=== PATIENT | female | born 1945 | race Caucasian/White ===

== ENCOUNTER 2018-03-02 14:44 | Emergency (ER) | payer MEDICARE, OTHER ==
--- NOTE | 2018-03-02 16:03 | RAD REPORT ---
EXAM DESCRIPTION: CT - Head Brain Wo Cont - 03/02/2018 3:51 pm CLINICAL HISTORY: Headache left-sided drooping COMPARISON: None. TECHNIQUE: Axial 5 mm thick images of the head were obtained without IV contrast. All CT scans are performed using dose optimization technique as appropriate and may include automated exposure control or mA/KV adjustment according to patient size. FINDINGS: No intracranial hemorrhage, mass, edema or shift of mid-line structures. No acute infarcti on changes seen. No cortical edema or sulcal effacement. Atrophy and chronic ischemic changes are min imal. Ventricles are normal. Mastoid air cells and visualized portions of the paranasal sinuses are clear. No acute bony findings. IMPRESSION: Negative non-contrast CT head examination for acute finding. Atrophy and chronic ischemic changes minimal. Concerns for acute ischemia can be addressed with MR im aging.
[2018-03-02] MEDS ORDERED: NA CHLORIDE 0.9% 1,000 ML ONE (16:35)
[2018-03-02 16:48] LABS: Absolute Lymphocytes (CBC) 1.9 K/uL (0.7-4.9); Absolute Monocytes 0.8 K/uL (0.1-1.3); Absolute Neutrophil 5.7 K/uL (1.8-8.0); Basophils % 0.7 % (0-1.3); Eosinophils % 3.6 % (0-4.4); Hematocrit 38.1 % (36.0-45.0); MCV 80.9 fL (80-100); MPV 7.1 fL (7.6-11.3); Monocytes % 8.8 % (3.3-12.3); RBC Red Blood Cell Count 4.71 M/uL (3.86-4.86)
[2018-03-02 17:04] LABS: Potassium 4.3 mmol/L (3.5-5.1)
--- NOTE | 2018-03-02 17:16 | ER ---
Nurse's Notes [facility] Name: Federica Dang Age: 72 yrs Sex: Female : 1945 Arrival Date: 03/02/2018 Time: 14:47 Bed 15 Private MD: Diagnosis: Yee's palsy Presentation: 03/02 14:52 Presenting complaint: Patient states: watering to L eye that began 2 days ago with ss headache. Patient reports that she woke up this morning and noticed that her eye is red and she now has drooping to the L side of her face. Transition of care: patient was not received from another setting of care. Onset of symptoms was February 28, 2018. Risk Assessment: Do you want to hurt yourself or someone else? Patient reports no desire to harm self or others. Initial Sepsis Screen: Does the patient meet any 2 criteria? No. Patient's initial sepsis screen is negative. Does the patient have a suspected source of infection? No. Patient's initial sepsis screen is negative. Care prior to arrival: None. 14:52 Method Of Arrival: Ambulatory ss 14:52 Acuity: JAMESON 3 ss Triage Assessment: 15:00 Headache History: Denies prior headaches. rb1 15:00 Pain: Also complains of photophobia. rb1 Historical: - Allergies: 14:54 No Known Allergies; ss - Home Meds: 15:00 Unable to obtain [Active]; rb1 - Immunization history:: Adult Immunizations up to date. - Social history:: Smoking status: Patient/guardian denies using tobacco. - Ebola Screening: : Patient denies exposure to infectious person Patient denies travel to an Ebola-affected area in the 21 days before illness onset. - Family history:: not pertinent. - Hospitalizations: : No recent hospitalization is reported. Screenin:00 Abuse screen: Denies threats or abuse. Nutritional screening: No deficits noted. rb1 Tuberculosis screening: No symptoms or risk factors identified. Fall Risk None identified. Assessment: 15:00 General: Appears in no apparent distress. comfortable, Behavior is calm, cooperative, rb1 Reports fever for. Pain: Complains of pain in forehead Pain currently is 4 out of 10 on a pain scale. Pain began x 2 days. Neuro: Level of Consciousness is awake, alert, obeys commands, Oriented to person, place, time, situation, Wet End Supervisor are equal bilaterally Moves all extremities. Gait is steady, Speech is slurred, Facial droop on left, Pupils are PERRLA. 15:00 Cardiovascular: Capillary refill < 3 seconds is brisk in bilateral fingers. rb1 Respiratory: Airway is patent Respiratory effort is even, unlabored, Respiratory pattern is regular, symmetrical. GI: No signs and/or symptoms were reported involving the gastrointestinal system. : No signs and/or symptoms were reported regarding the genitourinary system. EENT: Eyes are tearing on outer aspect of conjuctiva of left eye and inner aspect of conjunctiva of left eye Sclera/Cornea are reddened in outer aspect of conjuctiva of left eye and inner aspect of conjunctiva of left eye left eye is burning and itching. Derm: Skin is pink, warm \T\ dry. Musculoskeletal: Range of motion: intact in all extremities. 16:00 Reassessment: Patient appears in no apparent distress at this time. Patient and/or rb1 family updated on plan of care and expected duration. Pain level reassessed. Patient is alert, oriented x 3, equal unlabored respirations, skin warm/dry/pink. 17:00 Reassessment: Patient appears in no apparent distress at this time. No changes from rb1 previously documented assessment. Son at bedside. 17:45 Reassessment: Patient appears in no apparent distress at this time. Patient and/or rb1 family updated on plan of care and expected duration. Pain level reassessed. Patient is alert, oriented x 3, equal unlabored respirations, skin warm/dry/pink. Dr. Cox has not been able to speak with the pt. and family to go over the results so discharge is pending. 18:30 Reassessment: Patient appears in no apparent distress at this time. No changes from rb1 previously documented assessment. Vital Signs: 14:54 BP 125 / 81; Pulse 107; Resp 16; Temp 97.4(TE); Pulse Ox 96% ; Pain 4/10; ss 15:55 BP 139 / 70; Pulse 85; Resp 28; Pulse Ox 97% ; rb1 16:55 BP 121 / 70; Pulse 86; Resp 17; Pulse Ox 97% on R/A; dh3 17:20 BP 152 / 71; Pulse 78; Resp 15; Pulse Ox 100% on R/A; dh3 18:20 BP 147 / 73; Pulse 82; Resp 17; Pulse Ox 99% on R/A; rb1 Cornelio Coma Score: 17:14 Eye Response: spontaneous(4). Verbal Response: oriented(5). Motor Response: obeys rn commands(6). Total: 15. ED Course: 14:47 Patient arrived in ED. as 14:53 Triage completed. ss 14:54 Arm band placed on right wrist. ss 15:00 Patient has correct armband on for positive identification. Bed in low position. Call rb1 light in reach. Side rails up X 1. gambling monitor on. Pulse ox on. NIBP on. Warm blanket given. 15:08 Jerald Cox MD is Attending Physician. rn 15:36 Sasha Watkins, RN is Primary Nurse. rb1 15:50 CT completed. Patient moved to CT via stretcher. Patient moved back from CT. bq 15:51 CT Head Brain wo Cont In Process Unspecified. EDMS 16:29 Initial lab(s) drawn, by pr, sent to lab. Inserted saline lock: 22 gauge in left 3 antecubital area, using aseptic technique. Blood collected. 18:35 No provider procedures requiring assistance completed. IV discontinued, intact, rb1 bleeding controlled, No redness/swelling at site. Pressure dressing applied, IV was discontinued by GILBERTO Perla. Administered Medications: 16:34 Drug: NS 0.9% 1000 ml Route: IV; Rate: 1000 ml; Site: left antecubital; rb1 18:40 Drug: Acyclovir 400 mg Route: PO; rb1 18:40 Follow up: Response: Medication administered at discharge. rb1 18:40 Drug: predniSONE 60 mg Route: PO; rb1 18:40 Follow up: Response: Medication administered at discharge. rb1 Outcome: 17:16 Discharge ordered by . rn 18:40 Patient left the ED. rb1 18:40 Discharged to home ambulatory, with family. 18:40 Condition: stable 18:40 Discharge instructions given to patient, Instructed on discharge instructions, follow up and referral plans. medication usage, Demonstrated understanding of instructions, follow-up care, medications, Prescriptions given X 2. Signatures: Dispatcher [employer] EDIN Sonja Archer Glenys Zuñiga as Jerald Cox MD MD rn Smirch, Shelby, RN RN Sasha Watkins, DARREN RN [facility] [place] [id number] Corrections: (The following items were deleted from the chart) 19:40 18:48 Patient left the ED. rb1 rb1 19:42 18:35 Patient left the ED. rb1 rb1 19:42 18:35 Discharged to home ambulatory, with family, rb1 rb1 :42 18:35 Condition: stable rb1 rb1 19:42 18:35 Discharge instructions given to patient, Instructed on discharge instructions, rb1 follow up and referral plans. medication usage, Demonstrated understanding of instructions, follow-up care, medications, Prescriptions given X 2, rb1
--- NOTE | 2018-03-02 17:16 | EDPHYS ---
Physician Documentation [facility] Name: Federica Dang Age: 72 yrs Sex: Female : 1945 Arrival Date: 03/02/2018 Time: 14:47 Bed 15 Private MD: ED Physician Jerald Cox HPI: 03/02 16:01 This 72 yrs old Female presents to ER via Ambulatory with complaints of rn Headache, Facial Droop. 16:01 The patient complains of pain to the forehead. The patient describes the headache as rn aching. Onset: The symptoms/episode began/occurred 2 day(s) ago. Severity of symptoms: At its worst the pain was mild, in the emergency department the pain has improved. The patient has experienced a previous episode. 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 No other focal neurological complaint. . Historical: - Allergies: 14:54 No Known Allergies; ss - Home Meds: 15:00 Unable to obtain [Active]; rb1 - Immunization history:: Adult Immunizations up to date. - Social history:: Smoking status: Patient/guardian denies using tobacco. - Ebola Screening: : Patient denies exposure to infectious person Patient denies travel to an Ebola-affected area in the 21 days before illness onset. - Family history:: not pertinent. - Hospitalizations: : No recent hospitalization is reported. ROS: 16:01 Constitutional: Negative for fever, chills, and weight loss, Eyes: + red eye with clear rn drainage Neck: Negative for injury, pain, and swelling, Cardiovascular: Negative for chest pain, palpitations, and edema, Respiratory: Negative for shortness of breath, cough, wheezing, and pleuritic chest pain, Abdomen/GI: Negative for abdominal pain, nausea, vomiting, diarrhea, and constipation, MS/Extremity: Negative for injury and deformity, Skin: Negative for injury, rash, and discoloration, Neuro: Negative for weakness, numbness, tingling, and seizure. Exam: 16:01 Constitutional: This is a well developed, well nourished patient who is awake, alert, rn and in no acute distress. Head/Face: Normocephalic, atraumatic. Eyes: Left eye with mild scleral injection, pupils equal, reactive, clear drainage, no corneal defect Neck: Trachea midline, no thyromegaly or masses palpated, and no cervical lymphadenopathy. Supple, full range of motion without nuchal rigidity, or vertebral point tenderness. No Meningismus. Cardiovascular: Regular rate and rhythm with a normal S1 and S2. No gallops, murmurs, or rubs. Normal PMI, no JVD. No pulse deficits. Respiratory: Lungs have equal breath sounds bilaterally, clear to auscultation and percussion. No rales, rhonchi or wheezes noted. No increased work of breathing, no retractions or nasal flaring. Abdomen/GI: Soft, non-tender, with normal bowel sounds. No distension or tympany. No guarding or rebound. No evidence of tenderness throughout. Skin: Warm, dry with normal turgor. Normal color with no rashes, no lesions, and no evidence of cellulitis. MS/ Extremity: Pulses equal, no cyanosis. Neurovascular intact. Full, normal range of motion. Equal circumference. Neuro: Awake and alert, GCS 15, oriented to person, place, time, and situation. + left sided facial droop that involves upper and lower face, unable to completely shut left eye. Motor strength 5/5 in all extremities. Sensory grossly intact. Cerebellar exam normal. Vital Signs: 14:54 BP 125 / 81; Pulse 107; Resp 16; Temp 97.4(TE); Pulse Ox 96% ; Pain 4/10; ss 15:55 BP 139 / 70; Pulse 85; Resp 28; Pulse Ox 97% ; rb1 16:55 BP 121 / 70; Pulse 86; Resp 17; Pulse Ox 97% on R/A; dh3 17:20 BP 152 / 71; Pulse 78; Resp 15; Pulse Ox 100% on R/A; dh3 18:20 BP 147 / 73; Pulse 82; Resp 17; Pulse Ox 99% on R/A; rb1 Cornelio Coma Score: 17:14 Eye Response: spontaneous(4). Verbal Response: oriented(5). Motor Response: obeys rn commands(6). Total: 15. MDM: 15:08 Patient medically screened. rn 17:14 Differential diagnosis: hypertensive headache, intracerebral hemorrhage, migraine, rn tension headache, vasomotor headache, bells palsy. Data reviewed: vital signs, nurses notes, lab test result(s), radiologic studies, CT scan, and as a result, I will discharge patient. Counseling: I had a detailed discussion with the patient and/or guardian regarding: the historical points, exam findings, and any diagnostic results supporting the discharge/admit diagnosis, lab results, radiology results, the need for outpatient follow up, to return to the emergency department if symptoms worsen or persist or if there are any questions or concerns that arise at home. Special discussion: I discussed with the patient/guardian in detail that at this point there is no indication for admission to the hospital. It is understood, however, that if the symptoms persist or worsen the patient needs to return immediately for re-evaluation. Based on the history and exam findings, there is no indication for further emergent testing or inpatient evaluation. I discussed with the patient/guardian the need to see the neurologist for further evaluation of the symptoms. 17:14 ED course: Symptoms and presentation consistent with bells palsy and likely early rn irritation due to dry eye.. 03/02 15:52 Order name: CBC with Diff; Complete Time: 17:14 rn 03/02 15:52 Order name: Basic Metabolic Panel; Complete Time: 17:14 rn 03/02 15:00 Order name: CT Head Brain wo Cont; Complete Time: 16:04 la1 03/02 15:52 Order name: IV Start; Complete Time: 16:30 rn Administered Medications: 16:34 Drug: NS 0.9% 1000 ml Route: IV; Rate: 1000 ml; Site: left antecubital; rb1 18:40 Drug: Acyclovir 400 mg Route: PO; rb1 18:40 Follow up: Response: Medication administered at discharge. rb1 18:40 Drug: predniSONE 60 mg Route: PO; rb1 18:40 Follow up: Response: Medication administered at discharge. rb1 Disposition: 03/02/18 17:16 Discharged to Home. Impression: Yee's palsy. - Condition is Stable. - Discharge Instructions: Yee Palsy, Adult. - Prescriptions for Acyclovir 400 mg Oral Tablet - take 1 tablet by ORAL route every 8 hours; 30 tablet. Medrol (Garcia) 4 mg Oral Tablets, Dose Pack - take 1 tablet by ORAL route as directed - follow package instructions; 1 packet. - Medication Reconciliation Form, Thank You Letter, Antibiotic Education, Prescription Opioid Use form. - Follow up: Private Physician; When: As needed; Reason: Recheck today's complaints, Re-evaluation by your physician. - Problem is new. - Symptoms have improved. Signatures: Dispatcher [employer] EDJerald French MD MD rn Smirch, Shelby, RN RN Sasha Flynn RN RN rb1 Corrections: (The following items were deleted from the chart) 18:48 17:16 03/02/2018 17:16 Discharged to Home. Impression: Yee's palsy. Condition is rb1 Stable. Forms are Medication Reconciliation Form, Thank You Letter, Antibiotic Education, Prescription Opioid Use. Follow up: Private Physician; When: As needed; Reason: Recheck today's complaints, Re-evaluation by your physician. Problem is new. Symptoms have improved. rn
[2018-03-02] MEDS ORDERED: ACYCLOVIR 400 MG TABLET ONE (18:43)
[2018-03-02] MEDS ORDERED: predniSONE 20 MG TAB ONE (18:44)
== END 2018-03-02 18:48 | disposition home or self-care (01) ==
LOC: ER 14:44
DX: G51.0 Bell's palsy (principal); R51 Headache; R29.810 Facial weakness
CPT/HCPCS: 36415; 70450; 80048; 85025; J7030; 99285; J7512

== ENCOUNTER 2019-02-23 18:49 | Emergency (ER) | payer MEDICARE ==
--- NOTE | 2019-02-23 20:37 | RAD REPORT ---
EXAM DESCRIPTION: CT - CTHCSPWOC - 02/23/2019 8:28 pm CLINICAL HISTORY: Hypertension, headache, neck pain, uterine cancer COMPARISON: CT head February 2018 TECHNIQUE: Axial 5 mm thick images of the head were obtained. Axial 2 mm thick images of the cervic al spine were obtained with sagittal and coronal reconstruction images generated and reviewed. All CT scans are performed using dose optimization technique as appropriate and may include automated exposure control or mA/KV adjustment according to patient size. FINDINGS: No intracranial hemorrhage, mass, edema or acute intracranial finding. No suspicion for acute infarct ion. No extra-axial fluid collections. Mastoid air cells and paranasal sinuses are clear. No globe or orbit abnormality seen. Atrophy and chronic ischemic change pattern is mild matches comparison. Vent ricles are in proportion. Cervical body height and alignment are normal. C5-6 and C6-7 disc space narrowing. No fracture or acu te bony abnormality. Central canal detail is inherently limited. No significant foraminal encroachmen t changes. No paraspinal mass or hematoma. IMPRESSION: Atrophy and chronic ischemic changes match comparison. No acute intracranial finding. Cervical spine degenerative change as detailed. No acute finding.
[2019-02-23] MEDS ORDERED: MECLIZINE HCL 12.5 MG TAB ONE (20:50)
[2019-02-23] MEDS ORDERED: HYDROCODONE/APAP 5/325 MG TAB ONE (20:51)
[2019-02-23 20:59] LABS: Basophils % 0.4 % (0-1.3); Hematocrit 34.5 % (36.0-45.0); Lymphocytes % 26.6 % (15.3-44.8); MPV 8.1 fL (7.6-11.3); RBC Red Blood Cell Count 4.15 M/uL (3.86-4.86)
[2019-02-23 21:14] LABS: Potassium 4.4 mmol/L (3.5-5.1)
--- NOTE | 2019-02-23 21:56 | ER ---
Nurse's Notes [facility] Name: Federica Dang Age: 73 yrs Sex: Female : 1945 Arrival Date: 02/23/2019 Time: 18:54 Bed 23 Private MD: Torey Carranza E Diagnosis: Acute headache. Dizziness Presentation: 02/23 18:57 Presenting complaint: Patient states: HTN since last week, frontal headache, dizziness sv x 1 week. Transition of care: patient was not received from another setting of care. Onset of symptoms was February 16, 2019. Care prior to arrival: None. 18:57 Method Of Arrival: Ambulatory sv 19:01 Risk Assessment: Do you want to hurt yourself or someone else? Patient reports no sv desire to harm self or others. Initial Sepsis Screen: Does the patient meet any 2 criteria? No. Patient's initial sepsis screen is negative. Does the patient have a suspected source of infection? No. Patient's initial sepsis screen is negative. 19:01 Acuity: JAMESON 3 sv Triage Assessment: 18:59 General: Appears in no apparent distress. comfortable, Behavior is calm, cooperative, sv appropriate for age. Pain: Complains of pain in forehead. Neuro: Level of Consciousness is awake, alert, obeys commands, Oriented to person, place, time, situation, Moves all extremities. Full function Gait is steady, Speech is normal, Facial symmetry appears normal, Reports dizziness, headache frontal area. Respiratory: Respiratory effort is even, unlabored, Respiratory pattern is regular, symmetrical. Historical: - Allergies: 18:58 PENICILLINS; sv - Home Meds: 19:01 Lisinopril Oral [Active]; sv - PMHx: 18:58 Hypertension; uterine cancer; sv - Immunization history:: Adult Immunizations up to date. - Social history:: Smoking status: Patient/guardian denies using tobacco. - Ebola Screening: : Patient negative for fever greater than or equal to 101.5 degrees Fahrenheit, and additional compatible Ebola Virus Disease symptoms Patient denies exposure to infectious person. Screenin:20 Abuse screen: Denies threats or abuse. Denies injuries from another. Nutritional wh screening: No deficits noted. Tuberculosis screening: No symptoms or risk factors identified. Fall Risk None identified. Assessment: 19:25 General: Appears in no apparent distress. Behavior is calm, cooperative, appropriate wh for age. Pain: Complains of pain in forehead Pain does not radiate. Pain currently is 10 out of 10 on a pain scale. Quality of pain is described as aching, Pain began 2-3 days ago. Neuro: Level of Consciousness is awake, alert, obeys commands, Oriented to person, place, time, situation, Appropriate for age Plastic Process Technician are equal bilaterally Moves all extremities. Full function Reports dizziness, since Saturday headache frontal area. Cardiovascular: Heart tones S1 S2. Respiratory: Airway is patent Respiratory effort is even, unlabored, Respiratory pattern is regular, symmetrical. GI: Abdomen is flat, non-distended. : Reports Urine bag. EENT: No signs and/or symptoms were reported regarding the EENT system. Derm: Skin is intact, is healthy with good turgor, Skin is pink, warm \T\ dry. normal. Musculoskeletal: Range of motion: intact in all extremities. 20:30 Reassessment: Patient appears in no apparent distress at this time. No changes from previously documented assessment. Patient and/or family updated on plan of care and expected duration. Pain level reassessed. Patient is alert, oriented x 3, equal unlabored respirations, skin warm/dry/pink. 21:44 Reassessment: Patient appears in no apparent distress at this time. No changes from previously documented assessment. Patient and/or family updated on plan of care and expected duration. Pain level reassessed. Patient is alert, oriented x 3, equal unlabored respirations, skin warm/dry/pink. Patient states feeling better. Patient states symptoms have improved. 22:35 Reassessment: Patient appears in no apparent distress at this time. No changes from previously documented assessment. Patient and/or family updated on plan of care and expected duration. Pain level reassessed. Patient is alert, oriented x 3, equal unlabored respirations, skin warm/dry/pink. Patient states feeling better. Patient states symptoms have improved. Vital Signs: 18:58 BP 148 / 78; Pulse 78; Resp 18; Temp 98; Pulse Ox 98% ; Weight 68.04 kg; Height 5 ft. 3 sv in. (160.02 cm); 19:15 BP 176 / 70; Pulse 75; Resp 18; Temp 97.5; Pulse Ox 100% on R/A; wh 20:30 BP 149 / 71; Pulse 68; Resp 18; Pulse Ox 98% on R/A; wh 22:00 BP 129 / 56; Pulse 58; Resp 18; Pulse Ox 98% on R/A; 18:58 Body Mass Index 26.57 (68.04 kg, 160.02 cm) ED Course: 18:54 Patient arrived in ED. as 18:55 Torey Carranza MD is Private Physician. as 18:58 Arm band placed on. 19:01 Triage completed. 19:03 Flako Bridges is Primary Nurse. 19:21 Patient has correct armband on for positive identification. Bed in low position. Call light in reach. Side rails up X 1. Pulse ox on. NIBP on. 19:53 Jeovanny Cevallos MD is Attending Physician. pkl 20:28 CT Head C Spine In Process Unspecified. EDMO 20:28 CT completed. Patient tolerated procedure well. Patient moved to CT. Patient moved back mn from CT. 20:54 Initial lab(s) drawn, by nd, sent to lab. jp3 21:55 Torey Carranza MD is Referral Physician. pkl 22:35 No provider procedures requiring assistance completed. Patient did not have IV access during this emergency room visit. Administered Medications: 20:45 Drug: Alder 5 mg-325 mg 1 tabs Route: PO; jv1 22:36 Follow up: Response: No adverse reaction; Pain is decreased; RASS: Alert and Calm (0) 20:45 Drug: Antivert 25 mg Route: PO; jv1 22:36 Follow up: Response: No adverse reaction Outcome: 21:55 Discharge ordered by . pkl 22:35 Discharged to home ambulatory, with family. 22:35 Condition: good 22:35 Discharge instructions given to patient, family, Instructed on discharge instructions, follow up and referral plans. no drinking with medication, no driving heavy equipment, medication usage, POC Demonstrated understanding of instructions, follow-up care, medications, POC Prescriptions given X 2. 22:37 Patient left the ED. Signatures: Dispatcher [employer] Greer Stein RN RN Jeovanny Cevallos MD MD pkGlenys Granger Nathan nj Habalo, Winsy Hany Rivera jp3 Britni Nix RN RN jv1 Corrections: (The following items were deleted from the chart) 19:00 18:58 Pulse 78bpm; Resp 18bpm; Pulse Ox 98%; Temp 98F; 68.04 kg; Height 5 ft. 3 in.; sv BMI: 26.5; sv
--- NOTE | 2019-02-23 21:57 | EDPHYS ---
Physician Documentation [facility] Name: Federica Dang Age: 73 yrs Sex: Female : 1945 Arrival Date: 02/23/2019 Time: 18:54 Bed 23 Private MD: Torey Carranza E ED Physician Jeovanny Cevallos HPI: 02/23 20:06 This 73 yrs old Female presents to ER via Ambulatory with complaints of High pkl Blood Pressure, Dizziness. 20:06 The patient presents with dizziness, sense of spinning. Onset: The symptoms/episode pkl began/occurred 1 week(s) ago. Associated signs and symptoms: Pertinent positives: headache, hypertension. Historical: - Allergies: 18:58 PENICILLINS; sv - Home Meds: 19:01 Lisinopril Oral [Active]; sv - PMHx: 18:58 Hypertension; uterine cancer; sv - Immunization history:: Adult Immunizations up to date. - Social history:: Smoking status: Patient/guardian denies using tobacco. - Ebola Screening: : Patient negative for fever greater than or equal to 101.5 degrees Fahrenheit, and additional compatible Ebola Virus Disease symptoms Patient denies exposure to infectious person. ROS: 20:06 Eyes: Negative for injury, pain, redness, and discharge, ENT: Negative for injury, pkl pain, and discharge. 20:06 Neck: Positive for pain with movement. 20:06 Cardiovascular: Negative for chest pain. 20:06 Respiratory: Negative for cough, shortness of breath. 20:06 Abdomen/GI: Negative for abdominal pain, nausea, vomiting, and diarrhea. 20:06 Back: Negative for acute changes. 20:06 : Negative for urinary symptoms. 20:06 MS/extremity: Negative for acute changes. 20:06 Skin: Negative for rash. 20:06 Neuro: Negative for altered mental status. Exam: 20:06 Head/Face: Normocephalic, atraumatic. Eyes: Pupils equal round and reactive to light, pkl extra-ocular motions intact. Lids and lashes normal. Conjunctiva and sclera are non-icteric and not injected. Cornea within normal limits. Periorbital areas with no swelling, redness, or edema. ENT: Nares patent. No nasal discharge, no septal abnormalities noted. Tympanic membranes are normal and external auditory canals are clear. Oropharynx with no redness, swelling, or masses, exudates, or evidence of obstruction, uvula midline. Mucous membranes moist. 20:06 Neck: ROM/movement: pain, that is mild, with any movement. 20:06 Chest/axilla: Exam negative for acute changes. 20:06 Cardiovascular: Rate: normal, Rhythm: regular. 20:06 Respiratory: the patient does not display signs of respiratory distress, Respirations: normal, Breath sounds: are clear throughout. 20:06 Abdomen/GI: Bowel sounds: normal, Palpation: abdomen is soft and non-tender, in all quadrants. 20:06 Back: Exam negative for acute changes. 20:06 : Exam negative for acute changes. 20:06 Musculoskeletal/extremity: Exam is negative for acute changes. 20:06 Skin: Exam negative for rash. 20:06 Neuro: Orientation: is normal, Mentation: is normal, Memory: is normal, Cranial nerves: grossly normal, Cerebellar function: normal finger to nose testing, Motor: is normal. Vital Signs: 18:58 BP 148 / 78; Pulse 78; Resp 18; Temp 98; Pulse Ox 98% ; Weight 68.04 kg; Height 5 ft. 3 sv in. (160.02 cm); 19:15 BP 176 / 70; Pulse 75; Resp 18; Temp 97.5; Pulse Ox 100% on R/A; wh 20:30 BP 149 / 71; Pulse 68; Resp 18; Pulse Ox 98% on R/A; wh 22:00 BP 129 / 56; Pulse 58; Resp 18; Pulse Ox 98% on R/A; wh 18:58 Body Mass Index 26.57 (68.04 kg, 160.02 cm) sv MDM: 19:53 Patient medically screened. pkl 21:49 Data reviewed: vital signs, nurses notes, lab test result(s), radiologic studies, CT pkl scan. 21:53 ED course: Discussed lab. and CT Scan results with patient. Advised to follow up with pkl PCP in 2 to 3 days. Patient understood instructions. 02/23 20:03 Order name: CBC with Diff; Complete Time: 21:48 pkl 02/23 20:03 Order name: Chem 7; Complete Time: 21:48 pkl 02/23 20:05 Order name: CT Head C Spine; Complete Time: 21:48 pkl Administered Medications: 20:45 Drug: [place] 5 mg-325 mg 1 tabs Route: PO; jv1 22:36 Follow up: Response: No adverse reaction; Pain is decreased; RASS: Alert and Calm (0) 20:45 Drug: Antivert 25 mg Route: PO; jv1 22:36 Follow up: Response: No adverse reaction Disposition: 02/23/19 21:55 Discharged to Home. Impression: Acute headache. Dizziness. - Condition is Stable. - Prescriptions for Antivert 25 mg Oral Tablet - take 1 tablet by ORAL route every 8 hours As needed; 15 tablet. Ultram 50 mg Oral Tablet - take 1 tablet by ORAL route every 8 hours As needed; 15 tablet. - Medication Reconciliation Form, Thank You Letter, Antibiotic Education, Prescription Opioid Use form. - Follow up: Torey Carranza MD; When: 2 - 3 days; Reason: Re-evaluation by your physician. - Problem is new. - Symptoms have improved. Signatures: Dispatcher [employer] EDGreer Aldrich RN DARREN Jeovanny Cevallos MD MD pkl Flako Bridges Britni Nix RN RN jv1 Corrections: (The following items were deleted from the chart) 22:37 21:55 02/23/2019 21:55 Discharged to Home. Impression: Acute headache. Dizziness. Condition is Stable. Forms are Medication Reconciliation Form, Thank You Letter, Antibiotic Education, Prescription Opioid Use. Follow up: Torey Carranza; When: 2 - 3 days; Reason: Re-evaluation by your physician. Problem is new. Symptoms have improved. pkl
== END 2019-02-23 22:37 | disposition home or self-care (01) ==
LOC: ER 18:49
DX: R51 Headache (principal); I10 Essential (primary) hypertension; Z88.0 Allergy status to penicillin; Z85.42 Personal history of malignant neoplasm of other parts of uterus
CPT/HCPCS: 36415; 70450; 72125; 80048; 85025; 99284

== ENCOUNTER 2019-07-24 13:54 | Emergency (ER) | payer MEDICARE ==
--- NOTE | 2019-07-24 17:05 | RAD REPORT ---
EXAM DESCRIPTION: Candice Au (2 Views)07/24/2019 4:51 pm CLINICAL HISTORY: Cough COMPARISON: 2012 FINDINGS: The lungs appear clear of acute infiltrate. The heart is normal size IMPRESSION: No acute abnormalities displayed
--- NOTE | 2019-07-24 17:37 | EDPHYS ---
Physician Documentation [facility] Name: Federica Dang Age: 73 yrs Sex: Female : 1945 Arrival Date: 07/24/2019 Time: 13:57 Bed 18 Private MD: Torey Carranza E ED Physician Jerald Cox HPI: 07/24 16:33 This 73 yrs old Female presents to ER via Ambulatory with complaints of Low jmm BP. 16:33 This 73 yrs old Female presents to ER via Ambulatory with complaints of jmm cough, fever. 16:33 Onset: The symptoms/episode began/occurred gradually, 2 week(s) ago. Modifying factors: jmm The symptoms are alleviated by nothing. the symptoms are aggravated by nothing. Associated signs and symptoms: Pertinent positives: fever. This is a 73 year old female with a history of htn that presents to the ED with complaints of cough, congestion, sinus pain and fever beginning approx 2 weeks ago. Patient denies sore throat. Patient received flu and pneumonia vaccine. . Historical: - Allergies: 14:09 PENICILLINS; dm5 ROS: 16:33 ENT: Negative for injury, pain, and discharge. jmm 16:33 Constitutional: Positive for body aches, chills, fever. 16:33 Respiratory: Positive for cough. 16:33 Neuro: Positive for headache. 16:33 All other systems are negative. Exam: 16:33 Constitutional: This is a well developed, well nourished patient who is awake, alert, jmm and in no acute distress. 16:33 Eyes: EOMI, no conjunctival erythema appreciated ENT: Moist Mucus Membranes Neck: Trachea midline, Supple Chest/axilla: Normal chest wall appearance and motion. Cardiovascular: Regular rate and rhythm. No edema appreciated 16:33 Abdomen/GI: Non distended, soft Back: Normal ROM Skin: General appearance color normal MS/ Extremity: Moves all extremities, no obvious deformities appreciated, no edema noted to the lower extremities Neuro: Awake and alert, normal gait Psych: Behavior is normal, Mood is normal, Patient is cooperative and pleasant 16:33 Head/face: Sinus tenderness, that is moderate, is located over the right frontal sinus, left frontal sinus, right ethmoid sinus and left ethmoid sinus. 16:33 Respiratory: the patient does not display signs of respiratory distress, Respirations: normal, Breath sounds: wheezing: that is mild, is heard in the right upper lobe. Vital Signs: 14:09 BP 122 / 75; Pulse 99; Resp 18; Temp 98.4; Pulse Ox 98% on R/A; Weight 69.4 kg (M); dm5 Height 5 ft. 3 in. (160.02 cm); 17:23 BP 141 / 55; Pulse 81; Resp 17; Pulse Ox 97% on R/A; tw2 18:01 BP 115 / 59; Pulse 84; Resp 17; Pulse Ox 100% on R/A; tw2 14:09 Body Mass Index 27.10 (69.40 kg, 160.02 cm) dm5 MDM: 16:29 Patient medically screened. [facility] 16:35 Data reviewed: vital signs, nurses notes. [facility] 17:36 Data reviewed: lab test result(s), radiologic studies, plain films. Counseling: I had a [facility] detailed discussion with the patient and/or guardian regarding: the historical points, exam findings, and any diagnostic results supporting the discharge/admit diagnosis, lab results, radiology results, the need for outpatient follow up, to return to the emergency department if symptoms worsen or persist or if there are any questions or concerns that arise at home. ED course: Patient is alert and non toxic in appearance in the ED. No signs of resp distress. Patient advised to follow up with pcp and otherwise given strict return precautions. Patient understood and agrees with the plan of care. . 07/24 16:33 Order name: Flu; Complete Time: 17:21 [facility] 07/24 16:33 Order name: Strep; Complete Time: 17:21 [facility] 07/24 16:33 Order name: Chest Pa And Lat (2 Views) XRAY; Complete Time: 17:33 [facility] 07/24 17:20 Order name: Throat Culture EDMS Administered Medications: No medications were administered Disposition: 18:03 Co-signature as Attending Physician, Jerald Cox MD. rn Disposition: 07/24/19 17:37 Discharged to Home. Impression: Acute ethmoidal sinusitis, Acute sinusitis, Acute bronchitis. - Condition is Stable. - Discharge Instructions: Acute Bronchitis, Adult, Sinusitis, Adult. - Prescriptions for Zithromax Z- Garcia 250 mg Oral Tablet - take 1 tablet by ORAL route as directed for 5 days Day 1 - take two (2) tablets one time. Day 2, 3, 4 , 5 take one (1) tablet once daily.; 6 tablet. Albuterol Sulfate 90 mcg/actuation - inhale 1-2 puff by INHALATION route every 4-6 hours; 1 Inhaler. - Medication Reconciliation Form, Thank You Letter, Antibiotic Education, Prescription Opioid Use form. - Follow up: Torey Carranza MD; When: 2 - 3 days; Reason: Recheck today's complaints, Continuance of care, Re-evaluation by your physician. Signatures: Dispatcher [employer] Jacqueline Friedman, RN RN dm5 Felix Faust PA PA jmm Nieto, Roman, MD MD rn Skylar Da Silva RN RN tw2 Corrections: (The following items were deleted from the chart) 18:02 17:37 07/24/2019 17:37 Discharged to Home. Impression: Acute ethmoidal sinusitis; Acute tw2 sinusitis; Acute bronchitis. Condition is Stable. Forms are Medication Reconciliation Form, Thank You Letter, Antibiotic Education, Prescription Opioid Use. Follow up: Torey Carranza; When: 2 - 3 days; Reason: Recheck today's complaints, Continuance of care, Re-evaluation by your physician. yasmin
--- NOTE | 2019-07-24 17:37 | ER ---
Nurse's Notes [facility] Name: Federica Dang Age: 73 yrs Sex: Female : 1945 Arrival Date: 07/24/2019 Time: 13:57 Bed 18 Private MD: Torey Carranza E Diagnosis: Acute ethmoidal sinusitis;Acute sinusitis;Acute bronchitis Presentation: 07/24 14:07 Presenting complaint: Patient states: felt bad for 2 days, states bp was 98/70 at home dm5 and is low with a high temp of 100.2. cough and headache also reported. 14:07 Method Of Arrival: Ambulatory dm5 14:07 Acuity: JAMESON 4 dm5 Historical: - Allergies: 14:09 PENICILLINS; dm5 Screenin:43 Abuse screen: Denies threats or abuse. Denies injuries from another. Nutritional jl7 screening: No deficits noted. Tuberculosis screening: No symptoms or risk factors identified. Fall Risk None identified. Assessment: 16:24 Reassessment: pt moved from lobby to exam room 18 at this time. General: Appears in no tw2 apparent distress. 16:24 Pain: Denies pain. Neuro: Level of Consciousness is awake, alert, obeys commands, tw2 Oriented to person, place, time, situation. Cardiovascular: Heart tones S1 S2 Patient's skin is warm and dry. Respiratory: Reports cough that is non-productive, Airway is patent Respiratory effort is even, unlabored, Respiratory pattern is regular, symmetrical. GI: No signs and/or symptoms were reported involving the gastrointestinal system. Abdomen is flat, Bowel sounds present X 4 quads. : No signs and/or symptoms were reported regarding the genitourinary system. EENT: Reports nasal congestion nasal discharge. Derm: No signs and/or symptoms reported regarding the dermatologic system. Musculoskeletal: Range of motion: intact in all extremities. 17:24 Reassessment: Patient appears in no apparent distress at this time. No changes from tw2 previously documented assessment. Patient and/or family updated on plan of care and expected duration. Pain level reassessed. Patient is alert, oriented x 3, equal unlabored respirations, skin warm/dry/pink. 18:01 Reassessment: Patient appears in no apparent distress at this time. No changes from tw2 previously documented assessment. Patient and/or family updated on plan of care and expected duration. Pain level reassessed. Patient is alert, oriented x 3, equal unlabored respirations, skin warm/dry/pink. Vital Signs: 14:09 BP 122 / 75; Pulse 99; Resp 18; Temp 98.4; Pulse Ox 98% on R/A; Weight 69.4 kg (M); dm5 Height 5 ft. 3 in. (160.02 cm); 17:23 BP 141 / 55; Pulse 81; Resp 17; Pulse Ox 97% on R/A; tw2 18:01 BP 115 / 59; Pulse 84; Resp 17; Pulse Ox 100% on R/A; tw2 14:09 Body Mass Index 27.10 (69.40 kg, 160.02 cm) dm5 ED Course: 13:57 Patient arrived in ED. mr 13:57 Torey Carranza MD is Private Physician. mr 14:08 Shiva Hernández, RN is Primary Nurse. bp 14:08 Triage completed. dm5 14:09 Arm band placed on right wrist. Patient placed in waiting room. dm5 16:27 Felix Faust PA is PHCP. jmm 16:27 Jerald Cox MD is Attending Physician. jmm 16:31 Skylar Da Silva, RN is Primary Nurse. tw2 16:43 Patient has correct armband on for positive identification. Bed in low position. Call jl7 light in reach. Side rails up X 1. 16:43 Flu and/or RSV swab sent to lab. Strep swab sent to lab. jl7 16:49 Chest Pa And Lat (2 Views) XRAY In Process Unspecified. EDMS 17:37 Torey Carranza MD is Referral Physician. [facility] 17:38 Awaiting re-evaluation by ER provider, Awaiting: and ER provider to go over results tw2 with pt PRIOR to discharge. 18:02 No provider procedures requiring assistance completed. Patient did not have IV access tw2 during this emergency room visit. Administered Medications: No medications were administered Outcome: 17:37 Discharge ordered by . [facility] 18:02 Discharged to home ambulatory. tw2 18:02 Condition: stable 18:02 Discharge instructions given to patient, family, Instructed on discharge instructions, follow up and referral plans. medication usage, Demonstrated understanding of instructions, follow-up care, medications, Prescriptions given X 2. 18:02 Patient left the ED. tw2 Signatures: Dispatcher [employer] Jacqueline Friedman RN RN dm5 Felix Faust PA PA jmm Rivera, Zakiya mr Skylar Da Silva RN RN tw2 Giovanny Andrews RN RN jl7 Shiva Hernández RN RN bp Corrections: (The following items were deleted from the chart) 17:40 16:24 General: Appears in no apparent distress. tw2 tw2
[2019-07-24 18:22] VITALS: TEMP 98.4
[2019-07-24 18:27] VITALS: BP 115/59; O2SAT 100
== END 2019-07-24 18:02 | disposition home or self-care (01) ==
LOC: ER 13:54
DX: J01.20 Acute ethmoidal sinusitis, unspecified (principal); J20.9 Acute bronchitis, unspecified; Z88.0 Allergy status to penicillin
CPT/HCPCS: 71046; 87070; 87081; 87804; 99283

== ENCOUNTER 2020-01-03 12:58 | Emergency (ER) | payer MEDICARE ==
[2020-01-03 13:39] LABS: Absolute Lymphocytes (CBC) 1.6 K/uL (0.7-4.9); Basophils % 0.7 % (0-1.3); Hematocrit 34.7 % (36.0-45.0); Lymphocytes % 17.5 % (15.3-44.8); MPV 7.7 fL (7.6-11.3); RBC Red Blood Cell Count 4.15 M/uL (3.86-4.86)
[2020-01-03] MEDS ORDERED: HYDRALAZINE HCL 20 MG/ML VIAL ONE (13:40)
[2020-01-03 14:35] LABS: Urine Blood 2+ (NEG); Urine Glucose NEGATIVE (NEG); Urine Protein 2+ (NEG); Urine pH 6.5 (5.0-7.0)
[2020-01-03 14:36] LABS: Urine Bacteria >50 /HPF (<20); Urine Culture Reflex Order REFLEXED
[2020-01-03 15:11] LABS: Albumin 3.1 g/dL (3.4-5.0); Bilirubin Direct 0.1 mg/dL (0-0.2); Bilirubin Total 0.3 mg/dL (0.2-1.0); Potassium 4.1 mmol/L (3.5-5.1); Protein, Total 7.6 g/dL (6.4-8.2)
[2020-01-03] MEDS ORDERED: CEFTRIAXONE/SWI 1gm 1 GM/10 ML SYR ONE (15:15)
[2020-01-03] MEDS ORDERED: ACETAMINOPHEN 500 MG TAB ONE (15:25)
[2020-01-03] MEDS ORDERED: FLUCONAZOLE 100 MG TAB ONE (16:54)
--- NOTE | 2020-01-03 17:36 | RAD REPORT ---
EXAM DESCRIPTION: US - Transvaginal Study Probe - 01/03/2020 5:20 pm CLINICAL HISTORY: Cervical cancer/vaginal bleeding COMPARISON: none FINDINGS: The uterus was poorly visualized. Nonvisualization of right and left ovary Right and left adnexal unremarkable No significant free fluid is seen. IMPRESSION: Uterus is poorly visualized. It is uncertain if the patient has had a hysterectomy. Furt her evaluation with MRI may be helpful .
--- NOTE | 2020-01-03 18:01 | ER ---
Nurse's Notes [facility] Name: Federica Dang Age: 74 yrs Sex: Female : 1945 Arrival Date: 01/03/2020 Time: 13:04 Bed 13 Private MD: Diagnosis: Vaginitis, vulvitis and vulvovaginitis in diseases classified elsewhere;Urinary tract infection, site not specified Presentation: 01/02 13:05 Chief complaint: EMS states: Pt is 75 yr. old, c/o high blood pressure, low back pain, rb1 and vaginal bleeding. Coronavirus screen:. Ebola Screen: Patient denies travel to an Ebola-affected area in the 21 days before illness onset. 13:05 Method Of Arrival: EMS: [facility] 13:05 Acuity: JAMESON 3 rb1 13:15 Initial Sepsis Screen: Does the patient meet any 2 criteria? No. Patient's initial ca1 sepsis screen is negative. Does the patient have a suspected source of infection? No. Patient's initial sepsis screen is negative. 13:15 Risk Assessment: Do you want to hurt yourself or someone else? Patient reports no ca1 desire to harm self or others. Onset of symptoms was January 03, 2020. Triage Assessment: 13:04 General: Appears in no apparent distress. comfortable, Behavior is calm, cooperative. rb1 Pain: Complains of pain in low back Pain currently is 3 out of 10 on a pain scale. Neuro: Level of Consciousness is awake, alert, obeys commands, Oriented to person, place, time, situation. Respiratory: Airway is patent Respiratory effort is even, unlabored, Respiratory pattern is regular, symmetrical. : Reports vaginal bleeding that is Has a urostomy bag. Pt. reports that the bag continuously leaks. Derm: Skin is pink, warm \T\ dry. Historical: - Allergies: 13:04 PENICILLINS; rb1 - Home Meds: 13:04 amlodipine oral [Active]; rb1 - PMHx: 13:04 Hypertension; uterine cancer; Arthritis; Yee's Palsy; Cervical Cancer; rb1 - PSHx: 13:04 Urostomy bag; left arm; left leg; rb1 - Immunization history:: Adult Immunizations up to date. - Social history:: Smoking status: Patient/guardian denies using. Screenin:35 Abuse screen: Denies threats or abuse. Denies injuries from another. Nutritional ca1 screening: No deficits noted. Tuberculosis screening: No symptoms or risk factors identified. Fall Risk IV access (20 points). Assessment: 13:15 General: Appears in no apparent distress. comfortable, Behavior is calm, cooperative, ca1 appropriate for age. Pain: Denies pain. Neuro: Level of Consciousness is awake, alert, obeys commands, Oriented to person, place, time, situation. Cardiovascular: Heart tones S1 S2 present Capillary refill < 3 seconds Patient's skin is warm and dry. Respiratory: Airway is patent Respiratory effort is even, unlabored, Respiratory pattern is regular, symmetrical. GI: Abdomen is flat, non-distended, Bowel sounds present X 4 quads. Abd is soft and non tender X 4 quads. : No signs and/or symptoms were reported regarding the genitourinary system. Urine is cloudy, Urostomy on RLQ. EENT: No signs and/or symptoms were reported regarding the EENT system. Derm: Skin is intact, is healthy with good turgor, Skin is pink, warm \T\ dry. Musculoskeletal: Circulation, motion, and sensation intact. Capillary refill < 3 seconds. 14:00 Reassessment: Patient appears in no apparent distress at this time. Patient and/or ca1 family updated on plan of care and expected duration. Pain level reassessed. Patient is alert, oriented x 3, equal unlabored respirations, skin warm/dry/pink. Vital Signs: 13:05 BP 186 / 89; Pulse 95; Resp 17; Temp 99.1; Pulse Ox 99% ; Weight 68.04 kg; Height 5 ft. rb1 3 in. (160.02 cm); 14:00 BP 160 / 69; Pulse 91; Resp 15 S; Pulse Ox 98% on R/A; ca1 16:00 BP 148 / 76; Pulse 88; Resp 16; Pulse Ox 98% ; Pain 0/10; ls4 18:00 BP 142 / 88; Pulse 82; Resp 18; Temp 98.6(O); Pulse Ox 98% on R/A; Pain 3/10; ls4 13:05 Body Mass Index 26.57 (68.04 kg, 160.02 cm) rb1 ED Course: 13:04 Patient arrived in ED. rb1 13:07 Triage completed. rb1 13:09 León Jeffery PA is PHCP. jr8 13:09 Jerald Cox MD is Attending Physician. jr8 13:10 Keiko Estes, RN is Primary Nurse. ca1 13:15 Arm band placed on right wrist. ca1 13:24 Initial lab(s) drawn, by me, sent to lab. Inserted saline lock: 22 gauge in right ca1 forearm, using aseptic technique. Blood collected. 13:35 Patient has correct armband on for positive identification. Bed in low position. Call ca1 light in reach. Side rails up X 1. Pulse ox on. NIBP on. Warm blanket given. 13:53 Urine Microscopic Only Sent. ca1 14:05 No provider procedures requiring assistance completed. ls4 14:13 Report given to DARREN Gallagher. ca1 14:43 Basic Metabolic Panel Sent. ls4 14:44 Lab(s) recollected, by me, sent to lab. ca1 17:20 US Transvaginal Study (Probe) In Process Unspecified. EDMS Administered Medications: 13:33 Drug: hydrALAZINE 5 mg Route: IV; Rate: calculated rate; Site: right forearm; ca1 15:10 Drug: Rocephin 1 grams Route: IV; Rate: calculated rate; Site: left antecubital; ls4 16:57 Drug: DiFLUcan 150 mg Route: PO; ls4 Outcome: 18:00 Discharge ordered by . jr8 18:42 Discharged to home ambulatory. ls4 18:42 Condition: good 18:42 Discharge instructions given to patient, discharge delayed awaiting daughter for ride Instructed on discharge instructions, follow up and referral plans. medication usage, safety practices, Demonstrated understanding of instructions, follow-up care, medications, Prescriptions given X 2. 19:47 Patient left the ED. ls4 Signatures: Dispatcher [employer] EDMS León Jeffery PA PA jr8 Sasha Watkins, DARREN RN rb1 Aileen Elena RN RN ls4 Keiko Estes, DARREN RN ca1 Corrections: (The following items were deleted from the chart) 14:14 13:15 GI: Abdomen is flat, non-distended, Bowel sounds present X 4 quads. Abd is soft ca1 and non tender X 4 quads. ca1 14:14 13:15 : No signs and/or symptoms were reported regarding the genitourinary system. ca1ca1 19:46 19:41 Discharged to home ambulatory, ls4 ls4 :46 19:41 Condition: good ls4 ls4 46 19:41 Discharge instructions given to patient, Instructed on discharge instructions, ls4 follow up and referral plans. Demonstrated understanding of instructions, follow-up care, medications, Prescriptions given X 2, ls4
--- NOTE | 2020-01-03 18:01 | EDPHYS ---
Physician Documentation [facility] Name: Federica Dang Age: 74 yrs Sex: Female : 1945 Arrival Date: 01/03/2020 Time: 13:04 Bed 13 Private MD: ED Physician Jerald oCx HPI: 01/02 13:50 This 74 yrs old Female presents to ER via EMS with complaints of High Blood jr8 Pressure. 13:50 Onset: The symptoms/episode began/occurred acutely, today. Associated signs and jr8 symptoms: The patient has no apparent associated signs or symptoms. Severity of symptoms: At its worst the blood pressure was moderate. History of HTN. The patient has not recently seen a physician. Came to ED today for HTN and because she has had low back pain and when she wiped saw pink spotting on tissue. Seun urinary symptoms. Historical: - Allergies: 13:04 PENICILLINS; rb1 - Home Meds: 13:04 amlodipine oral [Active]; rb1 - PMHx: 13:04 Hypertension; uterine cancer; Arthritis; Yee's Palsy; Cervical Cancer; rb1 - PSHx: 13:04 Urostomy bag; left arm; left leg; rb1 - Immunization history:: Adult Immunizations up to date. - Social history:: Smoking status: Patient/guardian denies using. ROS: 13:50 Eyes: Negative for injury, pain, redness, and discharge, ENT: Negative for injury, jr8 pain, and discharge, Neck: Negative for injury, pain, and swelling, Cardiovascular: Negative for chest pain, palpitations, and edema, Respiratory: Negative for shortness of breath, cough, wheezing, and pleuritic chest pain, Abdomen/GI: Negative for abdominal pain, nausea, vomiting, diarrhea, and constipation, MS/Extremity: Negative for injury and deformity, Skin: Negative for injury, rash, and discoloration, Neuro: Negative for headache, weakness, numbness, tingling, and seizure. 13:50 Back: Positive for pain at rest, pain with movement, Negative for radiated pain. Exam: 13:50 Eyes: Pupils equal round and reactive to light, extra-ocular motions intact. Lids and jr8 lashes normal. Conjunctiva and sclera are non-icteric and not injected. Cornea within normal limits. Periorbital areas with no swelling, redness, or edema. ENT: Nares patent. No nasal discharge, no septal abnormalities noted. Tympanic membranes are normal and external auditory canals are clear. Oropharynx with no redness, swelling, or masses, exudates, or evidence of obstruction, uvula midline. Mucous membranes moist. Neck: Trachea midline, no thyromegaly or masses palpated, and no cervical lymphadenopathy. Supple, full range of motion without nuchal rigidity, or vertebral point tenderness. No Meningismus. Cardiovascular: Regular rate and rhythm with a normal S1 and S2. No gallops, murmurs, or rubs. Normal PMI, no JVD. No pulse deficits. Respiratory: Lungs have equal breath sounds bilaterally, clear to auscultation and percussion. No rales, rhonchi or wheezes noted. No increased work of breathing, no retractions or nasal flaring. Abdomen/GI: Soft, non-tender, with normal bowel sounds. No distension or tympany. No guarding or rebound. No evidence of tenderness throughout. Skin: Warm, dry with normal turgor. Normal color with no rashes, no lesions, and no evidence of cellulitis. MS/ Extremity: Pulses equal, no cyanosis. Neurovascular intact. Full, normal range of motion. Neuro: Awake and alert, GCS 15, oriented to person, place, time, and situation. Cranial nerves II-XII grossly intact. Motor strength 5/5 in all extremities. Sensory grossly intact. Cerebellar exam normal. Normal gait. 13:50 Back: pain, that is mild, of the right low back, ROM is painful, with all movement, normal spinal alignment noted, CVA tenderness, is absent, vertebral tenderness, is not appreciated. 17:59 : Pelvic Exam: External exam: is normal, Speculum exam: scant bleeding, no jr8 cervicitis, cottage like discharge noted with scant blood present , the nurse was present for the exam. Vital Signs: 13:05 BP 186 / 89; Pulse 95; Resp 17; Temp 99.1; Pulse Ox 99% ; Weight 68.04 kg; Height 5 ft. rb1 3 in. (160.02 cm); 14:00 BP 160 / 69; Pulse 91; Resp 15 S; Pulse Ox 98% on R/A; ca1 16:00 BP 148 / 76; Pulse 88; Resp 16; Pulse Ox 98% ; Pain 0/10; ls4 18:00 BP 142 / 88; Pulse 82; Resp 18; Temp 98.6(O); Pulse Ox 98% on R/A; Pain 3/10; ls4 13:05 Body Mass Index 26.57 (68.04 kg, 160.02 cm) rb1 MDM: 13:09 Patient medically screened. [facility] 17:58 Data reviewed: vital signs, nurses notes, lab test result(s), radiologic studies, [facility] ultrasound, and as a result, I will discharge patient. Data interpreted: Pulse oximetry: on room air is 98 %. Interpretation: normal. Counseling: I had a detailed discussion with the patient and/or guardian regarding: the historical points, exam findings, and any diagnostic results supporting the discharge/admit diagnosis, lab results, radiology results, the need for outpatient follow up, an OB/Gyne specialist, to return to the emergency department if symptoms worsen or persist or if there are any questions or concerns that arise at home. 01/02 13:17 Order name: Basic Metabolic Panel [facility] 01/02 13:17 Order name: CBC with Diff; Complete Time: 13:40 [facility] 01/02 13:17 Order name: Hepatic Function; Complete Time: 15:25 [facility] 01/02 13:17 Order name: Lipase; Complete Time: 15:25 [facility] 01/02 13:17 Order name: Urine Microscopic Only; Complete Time: 14:59 [facility] 01/02 13:17 Order name: Basic Metabolic Panel; Complete Time: 15:25 [facility] 01/02 13:17 Order name: IV Saline Lock; Complete Time: 13:33 [facility] 01/02 13:17 Order name: Labs collected and sent; Complete Time: 13:33 [facility] 01/02 13:55 Order name: Urine Dipstick--Ancillary (enter results); Complete Time: 14:59 tx 01/02 14:37 Order name: Urine Culture [facility] 01/02 15:53 Order name: US Transvaginal Study (Probe); Complete Time: 17:58 [facility] 01/02 13:17 Order name: Urine Dipstick-Ancillary (obtain specimen); Complete Time: 13:53 [facility] 01/02 14:03 Order name: Labs - recollect needed: chemistry ; Complete Time: 14:43 iw Administered Medications: 13:33 Drug: hydrALAZINE 5 mg Route: IV; Rate: calculated rate; Site: right forearm; ca1 15:10 Drug: Rocephin 1 grams Route: IV; Rate: calculated rate; Site: left antecubital; ls4 16:57 Drug: DiFLUcan 150 mg Route: PO; ls4 Disposition: 01/03/20 18:00 Discharged to Home. Impression: Vaginitis, vulvitis and vulvovaginitis in diseases classified elsewhere, Urinary tract infection, site not specified. - Condition is Stable. - Discharge Instructions: Urinary Tract Infection, Adult, Vaginitis. - Prescriptions for Cipro 500 mg Oral Tablet - take 1 tablet by ORAL route every 12 hours for 7 days; 14 tablet. Flagyl 500 mg Oral Tablet - take 1 tablet by ORAL route every 12 hours for 7 days; 14 tablet. - Medication Reconciliation Form, Thank You Letter, Antibiotic Education, Prescription Opioid Use form. - Follow up: Private Physician; When: 5 - 6 days; Reason: Recheck today's complaints, Continuance of care, Re-evaluation by your physician. - Problem is new. - Symptoms have improved. Addendum: 01/06/2020 07:37 Co-signature as Attending Physician, Jerald Cox MD. r n Signatures: Dispatcher [employer] EDBarbie Estrella RN RN iw Nieto, Roman, MD MD rn Roszak, Josh, PA PA jr8 Sasha Watkins, RN RN rb1 Aileen Elena RN RN ls4 Keiko Estes RN RN ca1 Corrections: (The following items were deleted from the chart) 01/02 19:47 18:00 01/03/2020 18:00 Discharged to Home. Impression: Vaginitis, vulvitis and ls4 vulvovaginitis in diseases classified elsewhere; Urinary tract infection, site not specified. Condition is Stable. Forms are Medication Reconciliation Form, Thank You Letter, Antibiotic Education, Prescription Opioid Use. Follow up: Private Physician; When: 5 - 6 days; Reason: Recheck today's complaints, Continuance of care, Re-evaluation by your physician. Problem is new. Symptoms have improved. jr8
[2020-01-03 19:54] VITALS: O2SAT 98
[2020-01-03 19:56] VITALS: BP 142/88; TEMP 98.6
== END 2020-01-03 19:47 | disposition home or self-care (01) ==
LOC: ER 12:58
DX: N39.0 Urinary tract infection, site not specified (principal); N77.1 Vaginitis, vulvitis and vulvovaginitis in diseases classified elsewhere; I10 Essential (primary) hypertension; Z85.41 Personal history of malignant neoplasm of cervix uteri; Z85.42 Personal history of malignant neoplasm of other parts of uterus; Z88.0 Allergy status to penicillin
CPT/HCPCS: 87088; 85025; 87086; 80048; 36415; 80076; 87077; 87186; 83690; 76830; 96375; 96374; 99284; J0360; J0696; 81003; 81015

== ENCOUNTER 2024-02-16 21:09 | Emergency (ER) | payer OTHER ==
[2024-02-16] MEDS ORDERED: ONDANSETRON 4 MG/2 ML VIAL ONE (22:11)
[2024-02-16] MEDS ORDERED: NA CHLORIDE 0.9% 1,000 ML ONE (22:12)
[2024-02-16 23:45] LABS: Absolute Eosinophils 0.1 K/uL (0-0.5); Absolute Lymphocytes (CBC) 1.3 K/uL (0.7-4.9); Absolute Monocytes 0.8 K/uL (0.1-1.3); Absolute Neutrophil 9.3 K/uL (1.8-8.0); Basophils % 0.3 % (0-1.3); Eosinophils % 0.6 % (0-4.4); Hematocrit 36.1 % (36.0-45.0); Hemoglobin 11.4 g/dL (12.0-15.0); MCH 26.9 pg (27.0-35.0); MCHC 31.6 g/dL (32.0-36.0); MCV 85.1 fL (80-100); MPV 8.1 fL (7.6-11.3); Monocytes % 7.2 % (3.3-12.3); Neutrophils % 80.9 % (41.7-73.7); Nucleated Red Blood Cells % 0.1 % (0-0); Platelets 525 thou/uL (152-406); RBC Red Blood Cell Count 4.24 M/uL (3.86-4.86); Red Cell Distribution Width 17.4 % (12.1-15.2)
[2024-02-16 23:55] LABS: Albumin 3.3 g/dL (3.4-5.0); Albumin/Globulin Ratio 0.6 (1.1-1.8); Alkaline Phosphatase 124 U/L (45-117); Anion Gap 12.7 mEq/L (5.0-15.0); BUN Blood Urea Nitrogen 59 mg/dL (7-18); Bicarbonate 19 mEq/L (21-32); Bilirubin Total 0.3 mg/dL (0.2-1.0); Globulin 5.5 g/dL (2.3-3.5); Glomerular Filtration Rate 18 ml/min (=/>90); Glucose Level 149 mg/dL (74-106); Lipase 84 U/L (13-75); Potassium 4.7 mEq/L (3.5-5.1); Protein, Total 8.8 g/dL (6.4-8.2); Sodium Level 135 mEq/L (136-145)
[2024-02-17 00:05] LABS: ALT/SGPT < 14 U/L (13-56); AST/SGOT < 10 U/L (15-37)
--- NOTE | 2024-02-17 02:22 | EDPHYS ---
Physician Documentation [facility] Name: Federica Dang Age: 78 yrs Sex: Female : 1945 Arrival Date: 02/16/2024 Time: 21:09 Bed 10 Private MD: Torey Carranza E ED Physician Wan Denton HPI: 02/15 21:55 This 78 yrs old Female presents to ER via Ambulatory with complaints of Decreased rt Appetite, Nausea/Vomiting, Weakness. 21:55 Patient presents to the ED with nausea, vomiting, generalized weakness for about 3 rt days. The patient denies abdominal pain. Denies other acute complaints at this time, symptoms are moderate in severity, no other aggravating elevating factors.. Historical: - Allergies: 21:53 PENICILLINS; bm8 - PMHx: 21:53 Arthritis; cervical cancer; Yee's Palsy; Hypertension; uterine cancer; bm8 - PSHx: 21:53 Colostomy; bm8 - Immunization history:: Adult Immunizations unknown. - Infectious Disease History:: Denies. - Social history:: Smoking status: Patient denies any tobacco usage or history of. ROS: 21:56 Constitutional: Negative for fever, chills, and weight loss, Cardiovascular: Negative rt for chest pain, palpitations, and edema, Respiratory: Negative for shortness of breath, cough, wheezing, and pleuritic chest pain, MS/Extremity: Negative for injury and deformity, Skin: Negative for injury, rash, and discoloration, 21:56 Abdomen/GI: Positive for nausea and vomiting, Negative for abdominal pain, Exam: 21:56 Constitutional: This is a well developed, well nourished patient who is awake, alert, rt and in no acute distress. Head/Face: Normocephalic, atraumatic. Chest/axilla: Normal chest wall appearance and motion. Nontender with no deformity. No lesions are appreciated. Cardiovascular: Regular rate and rhythm with a normal S1 and S2. No gallops, murmurs, or rubs. Normal PMI, no JVD. No pulse deficits. Respiratory: Lungs have equal breath sounds bilaterally, clear to auscultation and percussion. No rales, rhonchi or wheezes noted. No increased work of breathing, no retractions or nasal flaring. Skin: Warm, dry with normal turgor. Normal color with no rashes, no lesions, and no evidence of cellulitis. MS/ Extremity: Pulses equal, no cyanosis. Neurovascular intact. Full, normal range of motion. Neuro: Awake and alert, GCS 15, oriented to person, place, time, and situation. Cranial nerves II-XII grossly intact. Motor strength 5/5 in all extremities. Sensory grossly intact. Cerebellar exam normal. Normal gait. 21:56 Abdomen/GI: Colostomy, urostomy bag present, no abdominal tenderness, distention, Vital Signs: 21:52 BP 119 / 103; Pulse 79; Resp 18; Temp 97; Pulse Ox 100% ; Weight 63.5 kg; Height 5 ft. bm8 0 in. ; Pain 10/10; 23:00 BP 141 / 63; Pulse 71; Resp 16; Pulse Ox 100% on R/A; pc2 02/16 04:26 BP 124 / 60; Pulse 68; Resp 16; Temp 97.6; Pulse Ox 100% ; vc1 02/15 21:52 Body Mass Index 27.34 (63.50 kg, 152.4 cm) bm8 02/15 21:52 Pain Scale: Adult bm8 MDM: 02/15 21:56 Patient medically screened. rt 02/16 05:07 Differential diagnosis: Gastroenteritis, renal dysfunction, urinary retention. Data rt reviewed: vital signs, nurses notes, lab test result(s), EKG, radiologic studies. Consideration of Admission/Observation Escalation of care including admission/observation considered. Patient requires transfer to [facility] for continuity of care as that is where her surgeons are and where she had her surgeries.. Management of patient was discussed with the following: Hospitalist: Discussed with accepting hospitalist at [facility].. I considered the following discharge prescriptions or medication management in the emergency department Medications were administered in the Emergency Department. See MAR. Independent interpretation of the following test(s) in the Emergency Department CT Scan: My interpretation is No bowel obstructions, interpretation of CT scan images. Care significantly affected by the following chronic conditions: Uterine, cervical cancer. Counseling: I had a detailed discussion with the patient and/or guardian regarding the historical points, exam findings, and any diagnostic results supporting the discharge/admit diagnosis, lab results, radiology results, the need to transfer to another facility. Response to treatment: the patient's symptoms have mildly improved after treatment. 02/15 21:54 Order name: CBC with Diff; Complete Time: 00:24 rt 02/15 21:54 Order name: CMP; Complete Time: 00:24 rt 02/15 21:54 Order name: Lipase; Complete Time: 00:24 rt 02/16 00:29 Order name: Abdomen EDMS 02/15 21:54 Order name: IV Saline Lock; Complete Time: 23:21 rt 02/15 21:54 Order name: Labs collected and sent; Complete Time: 23:21 rt Administered Medications: 02/15 23:00 Drug: NS 0.9% IV 1000 ml IV at 1 bolus Per protocol; 1000 mL bolus Route: IV; Rate: 1 pc2 bolus; Site: right antecubital; 02/16 00:00 Follow up: IV Status: Completed infusion; IV Intake: 1000ml vc1 02/15 23:00 Drug: Ondansetron IVP 4 mg IVP once; over 2 minutes Route: IVP; Site: right antecubital;pc2 02/16 00:00 Follow up: Response: No adverse reaction; Nausea unchanged vc1 02:39 Drug: Ondansetron IVP 4 mg IVP once; over 2 minutes Route: IVP; Site: right antecubital;vc1 04:28 Follow up: Response: No adverse reaction; Marked relief of symptoms vc1 02:40 Drug: NS 0.9% IV 1000 ml IV at 1 bolus Per protocol; 1000 mL bolus Route: IV; Rate: 1 vc1 bolus; Site: right antecubital; 04:28 Follow up: IV Status: Completed infusion; IV Intake: 1000ml vc1 03:02 Drug: LevaQUIN IVPB 750 mg IVPB once Route: IVPB; Site: right antecubital; vc1 03:30 Follow up: IV Status: Completed infusion; IV Intake: 100ml vc1 Disposition Summary: 02/17/24 02:22 Transfer Ordered Notes: Transfer Location: [facility]-System rt Reason: Higher level of care rt Condition: Fair rt Problem: new rt Symptoms: have improved rt Accepting Physician: (02/17/24 04:27) vc1 Diagnosis - Acute kidney injury rt - Intractable nausea and vomiting rt Forms: - Medication Reconciliation Form rt - SBAR form rt Signatures: Dispatcher [employer] Jennifer Napier RN RN vc1 Wan Denton MD MD rt Nain Hobbs, RN RN bm8 Megan Johnson, RN RN pc2 Corrections: (The following items were deleted from the chart) 00:29 02/15 21:54 Abdomen Pelvis W Con+CT.RAD.BRZ ordered. EDMS EDMS 02/16 04:27 02:22 Dr. vilchis vc1
--- NOTE | 2024-02-17 02:22 | ER ---
Nurse's Notes [facility] Name: Federica Dang Age: 78 yrs Sex: Female : 1945 Arrival Date: 02/16/2024 Time: 21:09 Bed 10 Private MD: Torey Carranza E Diagnosis: Acute kidney injury;Intractable nausea and vomiting Presentation: 02/15 21:52 Chief complaint: Patient states: I havent been able to eat and feeling really weak for bm8 3 days. Coronavirus screen: Vaccine status: At this time, the client does not indicate any symptoms associated with coronavirus-19. Ebola Screen: Patient negative for fever greater than or equal to 101.5 degrees Fahrenheit, and additional compatible Ebola Virus Disease symptoms Patient denies exposure to infectious person. Patient denies travel to an Ebola-affected area in the 21 days before illness onset. No symptoms or risks identified at this time. Initial Sepsis Screen: Does the patient meet any 2 criteria? No. Patient's initial sepsis screen is negative. Does the patient have a suspected source of infection? No. Patient's initial sepsis screen is negative. Risk Assessment: Do you want to hurt yourself or someone else? Patient reports no desire to harm self or others. Onset of symptoms was February 12, 2024. 21:52 Method Of Arrival: Ambulatory bm8 21:52 Acuity: JAMESON 3 bm8 Triage Assessment: 21:53 General: Appears distressed, uncomfortable, Behavior is calm, cooperative, appropriate bm8 for age. Pain: Complains of pain in abdomen Pain currently is 10 out of 10 on a pain scale. EENT: No deficits noted. No signs and/or symptoms were reported regarding the EENT system. Neuro: No deficits noted. Level of Consciousness is awake, alert, obeys commands, Oriented to person, place, time, situation, Appropriate for age. Cardiovascular: Denies chest pain, Capillary refill < 3 seconds Patient's skin is warm and dry. Respiratory: Airway is patent Respiratory effort is even, unlabored, Respiratory pattern is regular, symmetrical. GI: Abdomen is flat, non-distended, Bowel sounds present X 4 quads. Reports lower abdominal pain, upper abdominal pain, intolerance of fluids, intolerance of food, nausea, vomiting. Historical: - Allergies: 21:53 PENICILLINS; bm8 - PMHx: 21:53 Arthritis; cervical cancer; Yee's Palsy; Hypertension; uterine cancer; bm8 - PSHx: 21:53 Colostomy; bm8 - Immunization history:: Adult Immunizations unknown. - Infectious Disease History:: Denies. - Social history:: Smoking status: Patient denies any tobacco usage or history of. Screenin:50 [facility] ED Fall Risk Assessment (Adult) History of falling in the last 3 months, pc2 including since admission Yes- single mechanical fall (1 pt) Confusion or Disorientation No (0 pts) Intoxicated or Sedated No (0 pts) Impaired Gait No (0 pts) Mobility Assist Device Used No (0 pt) Altered Elimination No (0 pt) Score/Fall Risk Level 0 - 2 = Low Risk Oriented to surroundings, Maintained a safe environment, Hourly rounding (assess needs \T\ fall precautionary measures) done. Abuse screen: Denies threats or abuse. Denies injuries from another. Nutritional screening: Has had N/V for 3 or more days. Tuberculosis screening: No symptoms or risk factors identified. Assessment: 22:50 General: Appears in no apparent distress. comfortable, Behavior is calm, cooperative, pc2 appropriate for age. Pain: Denies pain. Neuro: Level of Consciousness is awake, alert, obeys commands, Oriented to person, place, time, situation, Shuttle Bus Driver are equal bilaterally. Neuro: Reports weakness. Cardiovascular: Denies chest pain, palpitations, Patient's skin is warm and dry. Respiratory: Airway is patent Respiratory effort is even, unlabored, Respiratory pattern is regular, symmetrical. GI: Reports intolerance of fluids, intolerance of food, nausea, vomiting, since 3 days. GI: Abdomen is non-distended. : No signs and/or symptoms were reported regarding the genitourinary system. EENT: No signs and/or symptoms were reported regarding the EENT system. Derm: No signs and/or symptoms reported regarding the dermatologic system. Musculoskeletal: No signs and/or symptoms reported regarding the musculoskeletal system. 02/16 04:27 Reassessment: Patient and/or family updated on plan of care and expected duration. Pain vc1 level reassessed. Patient is alert, oriented x 3, equal unlabored respirations, skin warm/dry/pink. Patient states feeling better. Patient states symptoms have improved. Vital Signs: 02/15 21:52 BP 119 / 103; Pulse 79; Resp 18; Temp 97; Pulse Ox 100% ; Weight 63.5 kg; Height 5 ft. bm8 0 in. ; Pain 10/10; 23:00 BP 141 / 63; Pulse 71; Resp 16; Pulse Ox 100% on R/A; pc2 02/16 04:26 BP 124 / 60; Pulse 68; Resp 16; Temp 97.6; Pulse Ox 100% ; vc1 02/15 21:52 Body Mass Index 27.34 (63.50 kg, 152.4 cm) bm8 02/15 21:52 Pain Scale: Adult bm8 ED Course: 02/15 21:14 Patient arrived in ED. gm2 21:15 Torey Carranza MD is Private Physician. gm2 21:18 Wan Denton MD is Attending Physician. rt 21:53 Triage completed. bm8 21:53 Arm band placed on right wrist. bm8 22:13 Megan Johnson, RN is Primary Nurse. pc2 22:45 Inserted saline lock: 20 gauge in right antecubital area, using aseptic technique. pc2 Blood collected. Flushed with 10 mL NS. 23:07 No provider procedures requiring assistance completed. pc2 23:08 Patient has correct armband on for positive identification. Bed in low position. Call pc2 light in reach. Side rails up X2. Adult w/ patient. Provided Education on: POC and time frame. 02/16 00:29 Abdomen In Process Unspecified. EDMS 03:49 [id number] called [facility] for transfer to [facility] talked to Rachel. [id number] Dr Dany Bob accepted pt to sp [facility] [id number] admin approval from CHACHO Martin bed [id number] fax [phone] fax number. [phone] called [facility] for transport talked to Betty. 04:27 Patient transferred, IV remains in place. vc1 Administered Medications: 02/15 23:00 Drug: NS 0.9% IV 1000 ml IV at 1 bolus Per protocol; 1000 mL bolus Route: IV; Rate: 1 pc2 bolus; Site: right antecubital; 02/16 00:00 Follow up: IV Status: Completed infusion; IV Intake: 1000ml vc1 02/15 23:00 Drug: Ondansetron IVP 4 mg IVP once; over 2 minutes Route: IVP; Site: right antecubital;pc2 02/16 00:00 Follow up: Response: No adverse reaction; Nausea unchanged vc1 02:39 Drug: Ondansetron IVP 4 mg IVP once; over 2 minutes Route: IVP; Site: right antecubital;vc1 04:28 Follow up: Response: No adverse reaction; Marked relief of symptoms vc1 02:40 Drug: NS 0.9% IV 1000 ml IV at 1 bolus Per protocol; 1000 mL bolus Route: IV; Rate: 1 vc1 bolus; Site: right antecubital; 04:28 Follow up: IV Status: Completed infusion; IV Intake: 1000ml vc1 03:02 Drug: LevaQUIN IVPB 750 mg IVPB once Route: IVPB; Site: right antecubital; vc1 03:30 Follow up: IV Status: Completed infusion; IV Intake: 100ml vc1 Medication: 02/15 23:08 VIS not applicable for this client. pc2 Intake: 02/16 00:00 IV: 1000ml; Total: 1000ml. vc1 03:30 IV: 100ml; Total: 1100ml. vc1 04:28 IV: 1000ml; Total: 2100ml. vc1 Outcome: 02:22 ER care complete, transfer ordered by . rt 04:27 Transferred by ground EMS to [facility], Transfer form vc1 completed. X-rays sent w/ patient. 04:27 Condition: good 04:27 Instructed on the need for admit, 04:27 Patient left the ED. vc1 Signatures: Dispatcher [employer] EDMS Samia Meraz Vanessa, RN RN vc1 Wan Denton MD MD rt Geetha Agarwal gm2 Nain Hobbs RN RN bm8 Megan Johnson, RN RN pc2
[2024-02-17] MEDS ORDERED: ONDANSETRON 4 MG/2 ML VIAL ONE (02:28)
[2024-02-17] MEDS ORDERED: NA CHLORIDE 0.9% 1,000 ML ONE (02:29)
[2024-02-17] MEDS ORDERED: Levofloxacin 750mg IV 750 MG/150 ML BAG IV ONE (02:43)
[2024-02-17 04:41] VITALS: O2SAT 100
[2024-02-17 04:44] VITALS: BP 124/60; TEMP 97.6
--- NOTE | 2024-02-19 08:35 | RAD REPORT ---
EXAM DESCRIPTION: CT - Abdomen Pelvis Wo Contrast - 02/17/2024 5:54 am CLINICAL HISTORY: The patient is 78 years old and is Female; n/v TECHNIQUE: Axial computed tomography images of the abdomen and pelvis without intravenous contrast. Sagittal and coronal reformatted images were created and reviewed. This CT exam was performed usi ng one or more of the following dose reduction techniques: automated exposure control, adjustment o f the mA and/or kV according to patient size, and/or use of iterative reconstruction technique. COMPARISON: No relevant prior studies available. FINDINGS: LUNG BASES: Unremarkable. No mass. No consolidation. MEDIASTINUM: A small hiatal hernia is present. ABDOMEN: LIVER: Homogeneous without focal mass. GALLBLADDER AND BILE DUCTS: Calcified gallstones are present within the gallbladder. There is no ductal dilatation. PANCREAS: Unremarkable. No ductal dilation. SPLEEN: Unremarkable. ADRENALS: Unremarkable. No mass. KIDNEYS AND URETERS: The right kidney is atrophic with significant cortical thinning. Moderate bi lateral hydroureteronephrosis is present. No obstructing renal or ureteral calculus is seen. No perin ephric or periureteral stranding is noted. STOMACH AND BOWEL: The stomach is filled and air. The small bowel is decompressed. Stool is prese nt throughout the colon to level of the left lower quadrant colostomy. Evidence of a left hemicolecto my is noted. Extensive inflammatory stranding and fluid within the pelvis and surrounding the rectu m is noted. PELVIS: APPENDIX: No findings to suggest acute appendicitis. BLADDER: Within the pelvis, there is a thick walled loculated air collection with surrounding inf lammation. This may represent the bladder. A right ileal conduit is noted. REPRODUCTIVE: The uterus is surgically absent. ABDOMEN and PELVIS: INTRAPERITONEAL SPACE: Unremarkable. No free air. No significant fluid collection. BONES/JOINTS: Sclerosis and irregularity of the symphysis pubis and bilateral SI joints are noted . Sclerosis and irregularity along with osteopenia of the sacrum and iliac wings is present. SOFT TISSUES: The soft tissues are normal. VASCULATURE: An infrarenal IVC filter is placed. No abdominal aortic aneurysm. LYMPH NODES: Unremarkable. No enlarged lymph nodes. IMPRESSION: 1. Loculated air collection with surrounding inflammation within the pelvis. Findings may represent the bladder. Alternatively, an abscess is within the differential. Correlation with pat ient history and prior examination is recommended. 2. 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 3. Extensive wall thickening with surrounding inflammation involving the rectum. Findings may be re active to the process within the pelvis. 4. Changes of the bones of the pelvis. 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 Correlation for patient history is recommended. Comparison to prior imaging is also recommended. Electronically signed by: Shavon Shea MD 02/17/2024 12:58 AM CDT RP Due to temporary technical issues with the PACS/Fluency reporting system, reports are being signed by the in house radiologist without review as a courtesy to ensure prompt reporting. The interpreting r adiologist is fully responsible for the content of the report.
== END 2024-02-17 04:27 | disposition short-term general hospital (02) ==
LOC: ER 21:09
DX: N17.9 Acute kidney failure, unspecified (principal); I10 Essential (primary) hypertension; Z85.41 Personal history of malignant neoplasm of cervix uteri; Z85.42 Personal history of malignant neoplasm of other parts of uterus; Z93.3 Colostomy status
CPT/HCPCS: 85025; 36415; 83690; 80053; 74176; J2405 ×2; J7030 ×2; 96361; 96365; 96375; 99285

== ENCOUNTER 2024-09-05 22:22 | Emergency (ER) | payer OTHER ==
[2024-09-06 00:23] LABS: Absolute Eosinophils 0.3 K/uL (0-0.5); Absolute Lymphocytes (CBC) 1.5 K/uL (0.7-4.9); Absolute Monocytes 0.8 K/uL (0.1-1.3); Absolute Neutrophil 4.5 K/uL (1.8-8.0); Basophils % 0.5 % (0-1.3); Eosinophils % 3.7 % (0-4.4); Hematocrit 27.7 % (36.0-45.0); Hemoglobin 8.9 g/dL (12.0-15.0); Lymphocytes % 21.6 % (15.3-44.8); MCH 27.1 pg (27.0-35.0); MCHC 32.2 g/dL (32.0-36.0); MCV 84.2 fL (80-100); Monocytes % 11.5 % (3.3-12.3); Neutrophils % 62.7 % (41.7-73.7); Platelets 500 thou/uL (152-406); RBC Red Blood Cell Count 3.29 M/uL (3.86-4.86); Red Cell Distribution Width 17.1 % (12.1-15.2)
[2024-09-06 00:26] LABS: PT Prothrombin Time 21.4 SECONDS (10-13.0); PTT, Activated Partial Thromb 39.5 SECONDS (27.2-37.4); Protime INR 1.94
[2024-09-06 00:47] LABS: ALT/SGPT 24 U/L (13-56); AST/SGOT 19 U/L (15-37); Albumin 2.8 g/dL (3.4-5.0); Albumin/Globulin Ratio 0.5 (1.1-1.8); Alkaline Phosphatase 217 U/L (45-117); Anion Gap 11.3 mEq/L (5.0-15.0); BUN Blood Urea Nitrogen 27 mg/dL (7-18); Bicarbonate 19 mEq/L (21-32); Bilirubin Total 0.2 mg/dL (0.2-1.0); Globulin 5.6 g/dL (2.3-3.5); Glomerular Filtration Rate 29 ml/min (=/>90); Glucose Level 112 mg/dL (74-106); Magnesium 1.4 mg/dL (1.6-2.4); NT PRO-BNP 442 pg/mL (<450); Potassium 4.3 mEq/L (3.5-5.1); Protein, Total 8.4 g/dL (6.4-8.2); Sodium Level 134 mEq/L (136-145); Troponin High Sensitivity 5.4 pg/mL (<58.9)
[2024-09-06 00:49] LABS: Bilirubin Direct < 0.2 mg/dL (0-0.2)
[2024-09-06 00:54] LABS: Influenza A Ag Negative; Influenza B Ag Negative; SARS-CoV-2 Antigen Rapid Res Negative (Negative)
[2024-09-06] MEDS ORDERED: NA CHLORIDE 0.9% 500 ML ONE (02:07)
[2024-09-06] MEDS ORDERED: LIDOCAINE 1% 20 ML MDV ONE (02:08)
[2024-09-06] MEDS ORDERED: LIDOCAINE 2% W/EPI 1:200,000 MPF 20 ML VIAL IM ONE (02:11)
--- NOTE | 2024-09-06 03:00 | ER ---
Nurse's Notes [facility] Name: Federica Dang Age: 79 yrs Sex: Female : 1945 Arrival Date: 09/05/2024 Time: 22:22 Bed 18 Private MD: Diagnosis: Cough;Cutaneous abscess of groin-right;Hypomagnesemia Presentation: 09/05 22:56 Chief complaint: Patient states: Coughing, sore throat, fever 100.5 earlier today. cg Coronavirus screen: Vaccine status: Patient reports receiving the 2nd dose of the covid vaccine. Ebola Screen: Patient negative for fever greater than or equal to 101.5 degrees Fahrenheit, and additional compatible Ebola Virus Disease symptoms. Initial Sepsis Screen: Does the patient meet any 2 criteria? No. Patient's initial sepsis screen is negative. Does the patient have a suspected source of infection? No. Patient's initial sepsis screen is negative. Risk Assessment: Do you want to hurt yourself or someone else? Patient reports no desire to harm self or others. 22:56 Method Of Arrival: Ambulatory 22:56 Acuity: JAMESON 3 cg Historical: - Allergies: 09/06 01:30 PENICILLINS; al5 - PMHx: 01:30 Arthritis; Yee's Palsy; cervical cancer; Hypertension; uterine cancer; al5 - PSHx: 01:30 Colostomy; al5 - Immunization history:: Adult Immunizations up to date. - Infectious Disease History:: Denies. - Social history:: Smoking status: Patient denies any tobacco usage or history of. Screenin:29 [facility] ED Fall Risk Assessment (Adult) History of falling in the last 3 months, al5 including since admission No falls in past 3 months (0 pts) Confusion or Disorientation No (0 pts) Intoxicated or Sedated No (0 pts) Impaired Gait Yes (1 pt) Mobility Assist Device Used No (0 pt) Altered Elimination No (0 pt) Score/Fall Risk Level 0 - 2 = Low Risk Oriented to surroundings, Maintained a safe environment, Hourly rounding (assess needs \T\ fall precautionary measures) done. Abuse screen: Denies threats or abuse. Denies injuries from another. Nutritional screening: No deficits noted. Tuberculosis screening: No symptoms or risk factors identified. Assessment: 01:26 Reassessment: assumed care of patient. General: Appears in no apparent distress. al5 comfortable, Behavior is calm, cooperative. Pain: Complains of pain in throat. Neuro: Level of Consciousness is awake, alert, obeys commands, Oriented to person, place, time, situation. Cardiovascular: Capillary refill < 3 seconds Patient's skin is warm and dry. Respiratory: Reports cough that is Airway is patent Respiratory effort is even, unlabored, Respiratory pattern is regular, symmetrical. GI: No signs and/or symptoms were reported involving the gastrointestinal system. : No signs and/or symptoms were reported regarding the genitourinary system. EENT: No signs and/or symptoms were reported regarding the EENT system. Derm: Skin is intact, Skin is pink, warm \T\ dry. normal. Musculoskeletal: No signs and/or symptoms reported regarding the musculoskeletal system. 03:53 Reassessment: Patient appears in no apparent distress at this time. Patient and/or al5 family updated on plan of care and expected duration. Pain level reassessed. Patient is alert, oriented x 3, equal unlabored respirations, skin warm/dry/pink. Patient states feeling better. 18:12 Reassessment: RX called in to [facility] for Roberto Thompson - cefpodoxime 200mg PO BID hb x 7 days. Vital Signs: 09/05 22:56 BP 120 / 51; Pulse 114; Resp 18; Temp 98.8; Pulse Ox 97% ; Weight 60.78 kg; Height 5 cg ft. 4 in. ; Pain 04/02; 09/06 01:25 BP 121 / 54; Pulse 88; Resp 16; Pulse Ox 100% on R/A; al5 01:30 BP 112 / 54; Pulse 87; Resp 18; Pulse Ox 98% on R/A; al5 02:00 BP 105 / 42; Pulse 85; Resp 17; Pulse Ox 100% on R/A; al5 02:30 BP 108 / 51; Pulse 89; Resp 15; Pulse Ox 100% ; al5 03:00 BP 112 / 51; Pulse 81; Resp 15; Pulse Ox 100% ; al5 03:30 BP 100 / 47; Pulse 81; Resp 16; Pulse Ox 99% ; al5 09/05 22:56 Body Mass Index 23.00 (60.78 kg, 162.56 cm) cg 09/05 22:56 Pain Scale: Adult cg ED Course: 09/05 22:23 Patient arrived in ED. [id number] 22:24 Roberto Thompson PA is PHCP. cp 22:24 Yifan Liu MD is Attending Physician. cp 23:04 Triage completed. cg 23:41 XRAY Chest (1 view) In Process Unspecified. EDMS 09/06 00:09 Inserted saline lock: 20 gauge in right wrist, using aseptic technique. Blood af3 collected. Flushed with 10 mL NS. 00:24 EKG done, by lighting engineering technician. af3 01:29 Patient has correct armband on for positive identification. Bed in low position. Call al5 light in reach. Side rails up X2. family at bedside. Provided Education on: plan of care. 01:30 No provider procedures requiring assistance completed. al5 01:31 Gloria Panchal, RN is Primary Nurse. al5 03:53 IV discontinued, intact, bleeding controlled, No redness/swelling at site. Pressure al5 dressing applied. Administered Medications: 02:15 Drug: NS 0.9% IV 500 ml 500 ml IV at 1 bolus once; to be given as a bolus over 60 al5 minutes Volume: 500 ml; Route: IV; Rate: 1 bolus; Site: right wrist; 02:49 Follow up: Response: No adverse reaction; IV Status: Completed infusion; IV Intake: al5 500ml 03:00 Drug: Lidocaine Infiltration (2 %) 10 ml 5 ml Infiltration once; to bedside {Note: al5 given by provider.} Volume: 5 ml; Route: Infiltration; 03:51 Drug: Magnesium PO 800 mg PO once Route: PO; al5 03:51 Follow up: Response: No adverse reaction; Medication administered at discharge. al5 03:51 Drug: AZITHromycin PO 500 mg PO once Route: PO; al5 03:52 Follow up: Response: No adverse reaction; Medication administered at discharge. al5 Medication: 01:29 VIS not applicable for this client. al5 Intake: 02:49 IV: 500ml; Total: 500ml. al5 Outcome: 02:59 Discharge ordered by . cp 03:53 Discharged to home ambulatory, with family, al5 03:53 Condition: good 03:53 Discharge instructions given to patient, family, Instructed on discharge instructions, follow up and referral plans. medication usage, Demonstrated understanding of instructions, follow-up care, medications, Prescriptions given X 2, 03:54 Patient left the ED. al5 Signatures: Dispatcher [employer] EDMS Roberto Thompson PA PA cp Garcia, Cindy, DARREN RN Barbra Conner RN RN Bing [id number] Gloria Panchal RN RN al5 Aura Montes3 Corrections: (The following items were deleted from the chart) 03:52 03:51 Response: No adverse reaction al5 al5
--- NOTE | 2024-09-06 03:00 | EDPHYS ---
Physician Documentation [facility] Name: Federica Dang Age: 79 yrs Sex: Female : 1945 Arrival Date: 09/05/2024 Time: 22:22 Bed 18 Private MD: ED Physician Yifan Liu HPI: 09/05 23:05 This 79 yrs old Female presents to ER via Ambulatory with complaints of Cough. cp 23:05 The patient or guardian reports cough, described as moderate. Onset: The cp symptoms/episode began/occurred yesterday. Severity of symptoms: in the emergency department the symptoms are unchanged, despite home interventions. 23:05 Associated signs and symptoms: Pertinent positives: fever, sore throat, Pertinent cp negatives: chest pain, diarrhea, vomiting. Historical: - Allergies: 09/06 01:30 PENICILLINS; al5 - PMHx: 01:30 Arthritis; Yee's Palsy; cervical cancer; Hypertension; uterine cancer; al5 - PSHx: 01:30 Colostomy; al5 - Immunization history:: Adult Immunizations up to date. - Infectious Disease History:: Denies. - Social history:: Smoking status: Patient denies any tobacco usage or history of. ROS: 09/05 23:10 Constitutional: Positive for fever, cp 23:10 Eyes: Negative for injury, pain, redness, and discharge, cp 23:10 ENT: Negative for drainage from ear(s), ear pain, sore throat, difficulty swallowing, difficulty handling secretions, 23:10 Cardiovascular: Negative for chest pain, edema, palpitations, 23:10 Respiratory: Positive for cough, "sounds productive", Negative for shortness of breath, wheezing, 23:10 Abdomen/GI: Negative for abdominal pain, vomiting, diarrhea, constipation, 23:10 : Negative for urinary symptoms, 23:10 Skin: Positive for abscess, of the right groin, 23:10 All other systems are negative, cp Exam: 23:15 Constitutional: The patient appears in no acute distress, alert, awake, cp non-diaphoretic, non-toxic, well developed, well nourished, 23:15 Head/Face: Normocephalic, atraumatic. cp 23:15 Eyes: Periorbital structures: appear normal, Conjunctiva: normal, no exudate, no injection, Sclera: no appreciated abnormality, Lids and lashes: appear normal, bilaterally, 23:15 ENT: External ear(s): are unremarkable, Nose: is normal, Mouth: Lips: moist, Oral mucosa: moist, Posterior pharynx: Airway: no evidence of obstruction, patent, Tonsils: no enlargement, no exudate, erythema, that is mild, 23:15 Neck: ROM/movement: is normal, is supple, without pain, no range of motions limitations, 23:15 Chest/axilla: Inspection: normal, 23:15 Cardiovascular: Rate: tachycardic, Rhythm: regular, 23:15 Respiratory: the patient does not display signs of respiratory distress, Respirations: labored breathing, is not present, intercostal retractions, are absent, Breath sounds: bronchial sounds, that are mild, are heard diffusely, stridor, is not appreciated, wheezing: is not appreciated, 23:15 Abdomen/GI: Inspection: left lower abdomen colostomy noted and right lower abdomen urostomy noted, Bowel sounds: active, all quadrants, Palpation: abdomen is soft and non-tender, in all quadrants, small abscess noted right groin with purulent drainage expressed, 23:15 Neuro: Orientation: to person, place \\T\\ time. Mentation: is normal, Motor: moves all fours, strength is normal, Gait: is steady, 09/06 00:27 ECG was reviewed by the Attending Physician. cp Vital Signs: 09/05 22:56 BP 120 / 51; Pulse 114; Resp 18; Temp 98.8; Pulse Ox 97% ; Weight 60.78 kg; Height 5 cg ft. 4 in. ; Pain 1010; 09/06 01:25 BP 121 / 54; Pulse 88; Resp 16; Pulse Ox 100% on R/A; al5 01:30 BP 112 / 54; Pulse 87; Resp 18; Pulse Ox 98% on R/A; al5 02:00 BP 105 / 42; Pulse 85; Resp 17; Pulse Ox 100% on R/A; al5 02:30 BP 108 / 51; Pulse 89; Resp 15; Pulse Ox 100% ; al5 03:00 BP 112 / 51; Pulse 81; Resp 15; Pulse Ox 100% ; al5 03:30 BP 100 / 47; Pulse 81; Resp 16; Pulse Ox 99% ; al5 09/05 22:56 Body Mass Index 23.00 (60.78 kg, 162.56 cm) cg 03 22:56 Pain Scale: Adult cg Procedures: 02:42 I \\T\\ D: Incision and drainage was performed for an abscess of the right groin Prepped with Betadine, Anesthetized with ml's 2% Lidocaine with epinephrine. 3 ml's 2% Lidocaine with epinephrine. Incised with #11 blade. Drained small amount purulent fluid. Packed with iodoform gauze, Dressing: sterile 4x4 gauze, the patient tolerated the procedure well. MDM: 09/05 23:05 Medical Screening Exam initiated 09/06 00:00 Differential Diagnosis: Bronchitis Influenza Pharyngitis Viral Syndrome Pneumonia. 02:59 Data reviewed: vital signs, nurses notes, lab test result(s), EKG, radiologic studies, cp plain films, and as a result, I will discharge patient. 02:59 I considered the following discharge prescriptions or medication management in the emergency department Medications were administered in the Emergency Department. See MAR. Independent interpretation of the following test(s) in the Emergency Department EKG: See my EKG interpretation above. Test considered but Not performed: CT: abdomen/pelvis. Care significantly affected by the following chronic conditions: Hypertension, Cancer. Counseling: I had a detailed discussion with the patient and/or guardian regarding the historical points, exam findings, and any diagnostic results supporting the discharge/admit diagnosis, lab results, radiology results, to return to the emergency department if symptoms worsen or persist or if there are any questions or concerns that arise at home. Response to treatment: the patient's symptoms have mildly improved after treatment, and as a result, I will discharge patient. 09/05 23:00 Order name: Basic Metabolic Panel; Complete Time: 01:48 09/06 01:48 Interpretation: Normal except: NA 134; CL 108; CO2 19; GLUC 112; BUN 27; CRE 1.77; GFR cp 29; CA 10.3. 09/05 23:00 Order name: CBC with Diff; Complete Time: 01:48 09/06 01:48 Interpretation: Normal except: RBC 3.29; HGB 8.9; HCT 27.7; PLT 500; RDW 17.1; MPV 7.0. 09/05 23:00 Order name: LFT's; Complete Time: 01:48 09/06 01:49 Interpretation: Normal except: ALK 217; IBILI, CALC 0.0; TP 8.4; ALB 2.8; GLOB 5.6; A/G cp 0.5. 09/05 23:00 Order name: Magnesium; Complete Time: 01:48 cp 09/06 01:49 Interpretation: Abnormal: MG 1.4. cp 09/05 23:00 Order name: NT PRO-BNP; Complete Time: :48 cp 09/05 23:00 Order name: PT-INR; Complete Time: :48 cp 09/05 23:00 Order name: Troponin HS; Complete Time: 01:48 cp 09/05 23:00 Order name: COVID-19 Ag + Flu A+B Ag; Complete Time: :48 cp 09/05 23:00 Order name: Group A Streptococcus Rapid; Complete Time: 01:48 cp 09/05 23:00 Order name: Urinalysis W/Microscopic; Complete Time: 18:02 cp 09/06 18:02 Interpretation: Normal except: [facility] Extremely Turbid; UBLD 2+; UPROT TRACE; UESTR 500; cp UWBC 20-50; URBC 11-20; UBACT >50; BYST Trace. 09/05 23:05 Order name: Blood Culture Adult (2) cp 09/05 23:05 Order name: Lactate w/ 2H reflex if indic.; Complete Time: 01:48 cp 09/06 00:16 Order name: PTT, Activated Partial Thromb; Complete Time: 01:48 EDMS 09/06 01:00 Order name: Throat Culture EDWV 09/06 03:37 Order name: Urine Culture EDWV 09/05 23:00 Order name: XRAY Chest (1 view); Complete Time: 18:02 cp 09/05 23:00 Order name: Cardiac monitoring; Complete Time: 01:31 cp 09/05 23:00 Order name: EKG - Nurse/Tech; Complete Time: 00:24 cp 09/05 23:00 Order name: IV Saline Lock; Complete Time: 00:09 cp 09/05 23:00 Order name: Labs collected and sent; Complete Time: 00:09 cp 09/05 23:00 Order name: O2 Per Protocol; Complete Time: 01:31 cp 09/05 23:00 Order name: O2 Sat Monitoring; Complete Time: 01:31 cp 09/05 23:05 Order name: IV Saline Lock - Large Bore; Complete Time: 00:08 cp 09/05 23:05 Order name: Vital Signs; Complete Time: 00:08 cp 09/06 01:51 Order name: I\\T\\D Setup; Complete Time: 03:52 cp EC:27 Rate is 94 beats/min. Rhythm is regular. OK interval is normal. QRS interval is normal. cp QT interval is normal. T waves are Inverted in lead aVR. Interpreted by me. Reviewed by me. Administered Medications: 02:15 Drug: NS 0.9% IV 500 ml 500 ml IV at 1 bolus once; to be given as a bolus over 60 al5 minutes Volume: 500 ml; Route: IV; Rate: 1 bolus; Site: right wrist; 02:49 Follow up: Response: No adverse reaction; IV Status: Completed infusion; IV Intake: al5 500ml 03:00 Drug: Lidocaine Infiltration (2 %) 10 ml 5 ml Infiltration once; to bedside {Note: al5 given by provider.} Volume: 5 ml; Route: Infiltration; 03:51 Drug: Magnesium PO 800 mg PO once Route: PO; al5 03:51 Follow up: Response: No adverse reaction; Medication administered at discharge. al5 03:51 Drug: AZITHromycin PO 500 mg PO once Route: PO; al5 03:52 Follow up: Response: No adverse reaction; Medication administered at discharge. al5 Disposition Summary: 09/06/24 02:59 Discharge Ordered Notes: Location: Home cp Problem: new cp Symptoms: have improved cp Condition: Stable cp Diagnosis - Cough cp - Cutaneous abscess of groin - right cp - Hypomagnesemia cp Followup: cp - With: Private Physician - When: 2 - 3 days - Reason: Recheck today's complaints Discharge Instructions: - Discharge Summary Sheet cp - Skin Abscess cp - Hypomagnesemia cp - Incision and Drainage cp - Cough, Adult cp - Incision and Drainage, Care After cp Forms: - Medication Reconciliation Form cp - Antibiotic Education cp - Prescription Opioid Use cp - Patient Portal Instructions cp - Leadership Thank You Letter cp Prescriptions: - Tessalon Perles 100 mg Oral Capsule - take 1 capsule ORAL route every 8 hours As needed; 15 capsule; Refills: 0, cp Product Selection Permitted - Zithromax Z-Garcia 250 mg Oral Tablet - take 1 tablet ORAL route as directed for 5 days Day 1 - take two (2) tablets cp one time. Day 2, 3, 4 , 5 take one (1) tablet once daily.; 6 tablet; Refills: 0, Product Selection Permitted - cefpodoxime 200 mg Oral tablet - take 1 tablet ORAL route every 12 hours for 7 days with food; 14 tablet; cp Refills: 0, Product Selection Permitted Addendum: 09/08/2024 00:14 I was immediately available for consultation during this patient's visit. I did not e c2 personally see the patient or discuss the patient with the ARMEN. . Signatures: Dispatcher [employer] EDMS Roberto Thompson PA PA cp Corral, Edwin, MD MD ec2 Gloria Panchal RN RN al5 Corrections: (The following items were deleted from the chart) 09/05 23:01 23:01 BASIC METABOLIC PANEL+C.LAB.BRZ ordered. EDMS EDMS 23: 23:01 CBC+H.LAB.BRZ ordered. EDMS EDMS 23: 23:01 HEPATIC FUNCTION+C.LAB.BRZ ordered. EDMS EDMS 23: 23:01 MAGNESIUM+C.LAB.BRZ ordered. EDMS EDMS 23:01 23:01 PROBNP+C.LAB.BRZ ordered. EDMS EDMS 23: 23:01 PROTIME (+INR)+COAG.LAB.BRZ ordered. EDMS EDMS 23:01 23:01 Troponin High Sensitivity+C.LAB.BRZ ordered. EDMS EDMS 23:01 23:01 COVID-19 Ag + Flu A+B Ag+I.LAB.BRZ ordered. EDMS EDMS 23:01 23:01 Group A Streptococcus Rapid Sc+I.LAB.BRZ ordered. EDMS EDMS 23: 23:01 Urinalysis W/Microscopic+U.LAB.BRZ ordered. EDMS EDMS 23: 23:01 Chest Single View+RAD.RAD.BRZ ordered. EDMS EDMS 09/06 00:16 09/05 23:05 PTT, ACTIVATED+COAG.LAB.BRZ ordered. EDMS EDMS 09/06 01:31 09/05 23:05 Accucheck ordered. cp al5 09/08 00:16 00:14 I was immediately available for consultation during this patient's visit. I did ec2 not personally see the patient or discuss the patient with the ARMEN. . ec2
[2024-09-06 03:34] LABS: Renal Epithelial <5 /HPF (None Seen); Specific Gravity 1.013 (1.005-1.030); Sqamous Epithelial None Seen /HPF (None Seen); Urine Bacteria >50 /HPF (<20); Urine Bilirubin NEGATIVE (Negative); Urine Blood 2+ (Negative); Urine Clarity Extremely Turbid (Clear); Urine Color Light-Yellow (Yellow); Urine Culture Reflex Order REFLEXED; Urine Glucose NEGATIVE (Negative); Urine Ketones NEGATIVE (Negative); Urine Micro Reflex YN NO BILL MICROSCOPIC; Urine Mucus Slight /HPF (None Seen); Urine Nitrite NEGATIVE (Negative); Urine Protein TRACE (Negative); Urine Urobilinogen Normal (Normal); Urine WBC 20-50 /HPF (<5); Urine Yeast (Budding) Trace /HPF (None Seen)
[2024-09-06] MEDS ORDERED: MAGNESIUM OXIDE 400 MG TAB ONE (03:42)
[2024-09-06] MEDS ORDERED: AZITHROMYCIN 250 MG TAB ONE (03:43)
[2024-09-06 03:57] VITALS: TEMP 98.8
[2024-09-06 04:05] VITALS: BP 100/47; O2SAT 99
--- NOTE | 2024-09-06 06:34 | RAD REPORT ---
EXAM DESCRIPTION: XR CHEST 1 VIEW CLINICAL HISTORY: Cough. COMPARISON: XR Chest 07/24/2019 (report only) FINDINGS: Cardiac silhouette is within normal limits. There is atherosclerosis. There is no focal parenchymal o r pleural disease. There is no acute osseous process visualized. IMPRESSION: No evidence of acute cardiopulmonary disease. Electronically signed by: Phill Lowe MD 09/06/2024 12:19 AM CDT RP Due to temporary technical issues with the PACS/DataCert reporting system, reports are being roc d by the in-house radiologist without review as a courtesy to ensure prompt reporting. The interpreting radiologist is fully responsible for the content of the report. Transcribed Date/Time: 09/06/2024 6:33 AM
== END 2024-09-06 03:54 | disposition home or self-care (01) ==
LOC: ER 22:22
PROC: 0H9AXZZ Drainage of Inguinal Skin, External Approach (ICD-10-PCS; principal; 2024-09-06)
DX: R05.9 Cough, unspecified (principal); L02.214 Cutaneous abscess of groin; E83.42 Hypomagnesemia; I10 Essential (primary) hypertension; Z11.52 Encounter for screening for COVID-19; Z85.41 Personal history of malignant neoplasm of cervix uteri; Z85.42 Personal history of malignant neoplasm of other parts of uterus
CPT/HCPCS: 93005; 87040 ×2; 87070; 87088; 85025; 81001; 87086; 80048; 36415; 83735; 85610; 80076; 83605; 85730; 84484; 83880; 71045; 96360; 99284; 87428; 10060; J7040; 87077; 87186; J2003

== ENCOUNTER 2025-02-10 17:53 | Emergency (ER) | payer OTHER ==
[2025-02-10 18:35] LABS: Influenza A Ag Negative; Influenza B Ag Negative; SARS-CoV-2 Antigen Rapid Res Negative (Negative)
[2025-02-10 19:31] LABS: Sqamous Epithelial None Seen /HPF (None Seen); Urine Crystals Unidentified Few /HPF (None Seen); Urine Culture Reflex Order REFLEXED; Urine Microscopic Reflex YN ORDER UMIC; Urine Yeast (Budding) Trace /HPF (None Seen)
[2025-02-10] MEDS ORDERED: ONDANSETRON 4 MG/2 ML VIAL ONE (20:45)
[2025-02-10] MEDS ORDERED: NA CHLORIDE 0.9% 500 ML ONE (20:45)
[2025-02-10 20:48] LABS: Absolute Lymphocytes (CBC) 0.7 K/uL (0.7-4.9); Hematocrit 27.5 % (36.0-45.0); Hemoglobin 8.8 g/dL (12.0-15.0); MCH 26.9 pg (27.0-35.0); MCHC 32.1 g/dL (32.0-36.0); MCV 83.9 fL (80-100); MPV 6.9 fL (7.6-11.3); Nucleated RBC Absolute Count 0.0 (0-0); Nucleated Red Blood Cells % 0.0 % (0-0); RBC Red Blood Cell Count 3.28 M/uL (3.86-4.86); White Blood Count 13.30 thou/uL (4.3-10.9)
[2025-02-10 21:10] LABS: ALT/SGPT 18 U/L (13-56); Albumin 2.6 g/dL (3.4-5.0); Albumin/Globulin Ratio 0.5 (1.1-1.8); Alkaline Phosphatase 162 U/L (45-117); Anion Gap 14.6 mEq/L (5.0-15.0); BUN Blood Urea Nitrogen 40 mg/dL (7-18); Globulin 5.5 g/dL (2.3-3.5); Glucose Level 174 mg/dL (74-106); Lipase 18 U/L (13-75); Potassium 4.6 mEq/L (3.5-5.1)
[2025-02-10 21:11] LABS: AST/SGOT < 10 U/L (15-37)
[2025-02-10 21:16] LABS: Blood Morphology Comment NOT SEEN (NOT SEEN); White Blood Cell Scan OK (OK)
--- NOTE | 2025-02-10 22:41 | RAD REPORT ---
EXAMINATION: CT Abdomen Pelvis Wo Contrast CLINICAL INDICATION: Female, 79 years old. ABD PAIN TECHNIQUE: CT abdomen and pelvis was performed, without IV contrast, as per department protocol. Axia l, sagittal and coronal reconstructions were obtained. One or more of the following dose reduction techniques were used: Automated exposure control, adjustment of the mA and kV according to the patien t size, and iterative reconstruction. Unless otherwise specified, incidental findings do not require dedicated imaging follow-up. COMPARISON: 02/17/2024 FINDINGS: The lack of intravenous contrast limits the sensitivity of this exam for evaluation of solid visceral organs, vascular structures, and retroperitoneum. LOWER CHEST: The visualized lung bases are clear. LIVER: Normal in size and contour. No focal lesion. BILIARY SYSTEM: Small radiopaque gallstones No suspicious abnormalities. SPLEEN: Normal size. No focal lesion. PANCREAS: No mass, ductal dilation, or megan-pancreatic fluid. ADRENALS: Normal; no mass. KIDNEYS AND URETERS: Advanced right hydroureteronephrosis with renal cortical thinning, and mild left hydroureteronephrosis, stable. Nonobstructing calculi. URINARY BLADDER: Normal contour. GASTROINTESTINAL TRACT: Progressive soft tissue thickening in the presacral space, extending into the anterior pelvis, along the vaginal cuff region, to the level of the prepubic space. Wall thickening of the upper rectum, with ill-defined borders of the lower rectum, with gas and aerated fl uid likely within the lower rectum cavity, but extending anteriorly, likely communicating with the vagina and possibly decompressed or surgically absent urinary bladder as well. Soft tissue thickening extends along the inguinal canals, with small gas locules, more pronounced than on prior exam. 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 No evidence of bowel obstruction, signif icant free fluid, or free air. APPENDIX: Appendix not visualized, but no inflammatory changes in region of appendix. LYMPH NODES: No lymphadenopathy. MUSCULOSKELETAL: Mottled sclerotic lesions in the left more than right iliac bone, and to lesser ext ent the sacral ala and surrounding the pubic symphysis, stable in appearance. ADDITIONAL FINDINGS: None. IMPRESSION: Progressive soft tissue thickening in the pelvis, with ill-defined margins of the lower rectum, with fistulous communication between the rectum, vaginal cuff, and the decompressed or surgically absent urinary bladder bed. Progressive soft tissue thickening along the region of the inguinal canal the pr ior CT, with gas locules within, suggestive of dissecting fistulas. Right inguinal abnormality seems to reach the skin surface. Otherwise stable findings including right more than left hydroureteronephrosis with renal parenchymal atrophic changes on the right. Cholelithiasis.
--- NOTE | 2025-02-10 23:22 | RAD REPORT ---
EXAMINATION: ONE VIEW CHEST XR CLINICAL INDICATION: Female, 79 years old.,cough TECHNIQUE: Frontal chest projection is submitted. Examination is limited by patient positioning and t echnique. COMPARISON: 09/05/2024 FINDINGS: Interposed hand limits evaluation of the right lung apex. The lungs are well inflated and clear. No pneumothorax or sizable effusion. The heart is normal in size. Mediastinal contours are unremarkable. Cortical irregularity along the left second rib could indicate a subtle fracture. IMPRESSION: No acute intrathoracic abnormalities. Cortical irregularity along the left second rib could indicate a subtle fracture.
[2025-02-11] MEDS ORDERED: METRONIDAZOLE 500mg IVPB 500 MG/100 ML BAG IV ONE (00:19)
[2025-02-11] MEDS ORDERED: CIPROFLOXACIN 400mg IV 400 MG/200 ML BAG IV ONE (00:20)
--- NOTE | 2025-02-11 00:57 | EDPHYS ---
Physician Documentation [facility] Name: Federica Dang Age: 79 yrs Sex: Female : 1945 Arrival Date: 02/10/2025 Time: 17:53 Bed 19 Private MD: ED Physician Roberto Yu HPI: 02/10 20:45 This 79 yrs old Female presents to ER via Ambulatory with complaints of Flu Symptoms. kb 20:45 Pt is a 79 year old female who presents for cough and vomiting that started this kb morning. Denies fever, diarrhea. Also reports sore throat that is worse with talking. Historical: - Allergies: 18:08 PENICILLINS; cm10 - PMHx: 18:08 Arthritis; Yee's Palsy; cervical cancer; Hypertension; uterine cancer; cm10 - PSHx: 18:08 Colostomy; cm10 - Immunization history:: Adult Immunizations up to date. - Infectious Disease History:: Denies. - Social history:: Smoking status: Patient denies any tobacco usage or history of. ROS: 23:42 Constitutional: As per HPI kb Exam: 23:42 Constitutional: This is a well developed, well nourished patient who is awake, alert, kb and in no acute distress. Head/Face: Normocephalic, atraumatic. ENT: Moist Mucous membranes Cardiovascular: Regular rate Respiratory: Respirations even and unlabored. No increased work of breathing. Talking in full sentences Skin: Warm, dry with normal turgor. Normal color. MS/ Extremity: Pulses equal, no cyanosis. Neurovascular intact. Full, normal range of motion. Neuro: Awake and alert, GCS 15, oriented to person, place, time, and situation. 23:42 Abdomen/GI: Inspection: colostomy and urostomy in place. open wound to right groin with drainage, Palpation: soft, in all quadrants, moderate abdominal tenderness, in the left upper quadrant and left lower quadrant, Vital Signs: 18:07 BP 143 / 72; Pulse 94; Resp 18; Temp 97.4(TE); Pulse Ox 94% on R/A; Weight 61.23 kg; cm10 Height 5 ft. 6 in. ; Pain 3/10; 19:30 BP 151 / 58; Pulse 77; Resp 14; Pulse Ox 94% on R/A; al5 20:00 BP 156 / 47; Pulse 78; Resp 12; Pulse Ox 95% on R/A; al5 20:30 BP 139 / 50; Pulse 78; Resp 12; Pulse Ox 96% on R/A; al5 21:00 BP 121 / 50; Pulse 80; Resp 13; Pulse Ox 94% on R/A; al5 21:30 BP 118 / 50; Pulse 78; Resp 14; Pulse Ox 93% on R/A; al5 22:06 BP 127 / 51; Pulse 74; Resp 13; Pulse Ox 95% on R/A; al5 22:30 BP 144 / 58; Pulse 77; Resp 12; Pulse Ox 94% on R/A; al5 23:00 BP 151 / 60; Pulse 76; Resp 14; Pulse Ox 97% on R/A; al5 23:30 BP 119 / 69; Pulse 70; Resp 14; Pulse Ox 98% on R/A; al5 02/11 00:00 BP 139 / 58; Pulse 72; Resp 15; Pulse Ox 95% on R/A; al5 00:30 BP 110 / 58; Pulse 73; Resp 14; Pulse Ox 97% on R/A; al5 01:00 BP 147 / 68; Pulse 73; Resp 13; Pulse Ox 95% on R/A; al5 02/10 18:07 Body Mass Index 21.79 (61.23 kg, 167.64 cm) cm10 02/10 18:07 Pain Scale: Adult cm10 MDM: 02/10 17:58 Medical Screening Exam initiated kb 23:41 Data reviewed: vital signs, nurses notes. Consideration of Admission/Observation kb Escalation of care including admission/observation considered. pt will be transferred to [facility] for continuity of care. Pt's urogynecologist, oncologist and surgeon are all at [facility]. Historians other than the Patient: Daughter/Son: son. Counseling: I had a detailed discussion with the patient and/or guardian regarding the historical points, exam findings, and any diagnostic results supporting the discharge/admit diagnosis, lab results, radiology results, the need to transfer to another facility, for higher level of care, [facility] does not immediately have the required specialist. 23:45 Differential diagnosis: fistula, bacterial infection, uti, vital illness, strep, flu, kb covid, dehydration. Management of patient was discussed with the following: Dr Mendoza accepts pt for transfer to [facility] ER for evaluation by colorectal surgery. 02/10 18:01 Order name: COVID-19 Ag + Flu A+B Ag; Complete Time: 18:38 kb 02/10 18:10 Order name: CBC with Diff; Complete Time: 00:58 kb 02/10 18:10 Order name: CMP; Complete Time: 00:58 kb 02/10 18:10 Order name: Lipase; Complete Time: 00:58 kb 02/10 18:10 Order name: UA Rfx Denis Cult if indicated; Complete Time: 19:32 kb 02/10 19:35 Order name: Urine Culture EDMS 02/10 20:46 Order name: Group A Streptococcus Rapid kb 02/11 00:56 Order name: CBC Smear Scan; Complete Time: 00:58 EDMS 02/11 00:57 Order name: Group A Streptococcus Rapid Sc; Complete Time: 00:58 EDMS 02/11 00:57 Order name: Throat Culture EDMS 02/11 00:58 Order name: Lactate w/ 2H reflex if indic.; Complete Time: 01:18 EDMS 02/11 00:58 Order name: Protime (+INR); Complete Time: 01:05 EDMS 02/11 00:58 Order name: PTT, Activated Partial Thromb; Complete Time: 01:05 EDMS 02/11 00:58 Order name: Blood Culture EDMS 02/11 00:58 Order name: Blood Culture EDMS 02/11 00:56 Order name: Abdomen ; Complete Time: 00:58 EDMS 02/11 00:57 Order name: Chest Single View; Complete Time: 00:58 EDMS 02/10 18:10 Order name: IV Saline Lock; Complete Time: 20:38 kb 02/10 18:10 Order name: Labs collected and sent; Complete Time: 20:38 kb 02/10 23:37 Order name: Cardiac monitoring; Complete Time: 23:49 kb 02/10 23:37 Order name: IV Saline Lock - Large Bore; Complete Time: 23:49 kb 02/10 23:37 Order name: O2 Per Protocol; Complete Time: 23:49 kb 02/10 23:37 Order name: O2 Sat Monitoring; Complete Time: 23:49 kb 02/10 23:37 Order name: Vital Signs; Complete Time: 00:04 kb Administered Medications: 20:50 Drug: Ondansetron IVP 4 mg IVP once; over 2 minutes Route: IVP; Site: right antecubital;al5 22:55 Follow up: Response: No adverse reaction; Nausea is decreased al5 20:50 Drug: NS 0.9% IV 500 ml 500 ml IV at 1 bolus once; to be given as a bolus over 30 al5 minutes Volume: 500 ml; Route: IV; Rate: 1 bolus; Site: right antecubital; 22:55 Follow up: Response: No adverse reaction; IV Status: Completed infusion; IV Intake: al5 500ml 02/11 00:23 Drug: metroNIDAZOLE IVPB 500 mg 100 ml IVPB at 200 ml/hr once over 30 mins Volume: 100 al5 ml; Route: IVPB; Rate: 200 ml/hr; Infused Over: 30 mins; Site: right antecubital; 00:56 Follow up: Response: No adverse reaction; IV Status: Completed infusion; IV Intake: al5 100ml 00:58 Drug: Ciprofloxacin IVPB 400 mg 200 ml IVPB once over 60 mins Volume: 200 ml; Route: al5 IVPB; Infused Over: 60 mins; Site: right antecubital; 01:12 Follow up: Response: No adverse reaction; IV Status: Infusion continued upon transfer al5 Disposition: 13:49 Co-signature as Attending Physician, Roberto Yu MD I agree with the assessment and philipp plan of care. Disposition Summary: 02/10/25 23:55 Transfer Ordered Notes: Transfer Location: [facility] kb Reason: Higher level of care kb Condition: Stable kb Problem: new kb Symptoms: are unchanged kb Accepting Physician: Dr Mendoza(02/11/25 01:41) al5 Diagnosis - Abdominal pain, unspecified kb - Vomiting kb - Fistula formation kb Forms: - Medication Reconciliation Form kb - SBAR form kb Signatures: Dispatcher [employer] EDAnne Moy, HELP DESK TECHNICIAN-C HELP DESK TECHNICIAN-Roberto Lagunas MD MD cha Martinez, Clarissa RN RN cm10 Gloria Panchal RN RN al5 Corrections: (The following items were deleted from the chart) 00:56 02/10 18:11 Abdomen Pelvis W Con+CT.RAD.BRZ ordered. EDID EDID 02/11 01:07 00:58 BLOOD CULTURE*+BA.LAB.BRZ ordered. EDMS EDMS 01:08 00:58 LACTATE+C.LAB.BRZ ordered. EDMS EDMS 01:08 00:58 PROTIME (+INR)+COAG.LAB.BRZ ordered. EDMS EDMS 01:08 00:58 PTT, ACTIVATED+COAG.LAB.BRZ ordered. EDMS EDMS 01:41 02/10 23:55 Dr Mendoza kb al5
--- NOTE | 2025-02-11 00:57 | ER ---
Nurse's Notes [facility] Name: Federica Dang Age: 79 yrs Sex: Female : 1945 Arrival Date: 02/10/2025 Time: 17:53 Bed 19 Private MD: Diagnosis: Abdominal pain, unspecified;Vomiting;Fistula formation Presentation: 02/10 18:07 Chief complaint: Patient states: Cough, sore throat, and vomiting onset today. cm10 Coronavirus screen: Client denies travel out of the [place] in the last 14 days. Ebola Screen: Patient denies travel to an Ebola-affected area in the 21 days before illness onset. Initial Sepsis Screen: Does the patient meet any 2 criteria? HR > 90 bpm. Does the patient have a suspected source of infection? No. Patient's initial sepsis screen is negative. Risk Assessment: Do you want to hurt yourself or someone else? Patient reports no desire to harm self or others. Onset of symptoms was February 10, 2025. 18:07 Method Of Arrival: Ambulatory cm10 18:07 Acuity: JAMESON 3 cm10 Triage Assessment: 18:08 General: Appears in no apparent distress. uncomfortable, Behavior is calm, cooperative. cm10 Neuro: No deficits noted. Level of Consciousness is awake, alert, obeys commands, Oriented to person, place, time, situation, Appropriate for age. Respiratory: No deficits noted. Airway is patent Respiratory effort is even, unlabored, Respiratory pattern is regular, symmetrical. Historical: - Allergies: 18:08 PENICILLINS; cm10 - PMHx: 18:08 Arthritis; Yee's Palsy; cervical cancer; Hypertension; uterine cancer; cm10 - PSHx: 18:08 Colostomy; cm10 - Immunization history:: Adult Immunizations up to date. - Infectious Disease History:: Denies. - Social history:: Smoking status: Patient denies any tobacco usage or history of. Screenin:39 [facility] ED Fall Risk Assessment (Adult) History of falling in the last 3 months, al5 including since admission No falls in past 3 months (0 pts) Confusion or Disorientation No (0 pts) Intoxicated or Sedated No (0 pts) Impaired Gait Yes (1 pt) Mobility Assist Device Used No (0 pt) Altered Elimination Yes (1 pt) Score/Fall Risk Level 0 - 2 = Low Risk Oriented to surroundings, Maintained a safe environment, Hourly rounding (assess needs \T\ fall precautionary measures) done. Abuse screen: Denies threats or abuse. Denies injuries from another. Nutritional screening: No deficits noted. Tuberculosis screening: No symptoms or risk factors identified. Assessment: 19:40 General: Appears in no apparent distress. comfortable, Behavior is calm, cooperative. al5 Neuro: Level of Consciousness is awake, alert, obeys commands, Oriented to person, place, time, situation. Cardiovascular: Capillary refill < 3 seconds Patient's skin is warm and dry. Respiratory: Reports cough that is Airway is patent Respiratory effort is even, unlabored, Respiratory pattern is regular, symmetrical. GI: Colostomy site is clean and dry. Ostomy appliance is intact. Reports nausea, vomiting, L side abdominal pain. : patient has a urostomy bag, site clean and dry, ostomy appliance is intact. EENT: No signs and/or symptoms were reported regarding the EENT system. Derm: Skin is intact, is thin. Musculoskeletal: Circulation, motion, and sensation intact. Range of motion: intact in all extremities. 20:57 Reassessment: Patient appears in no apparent distress at this time. No changes from al5 previously documented assessment. Patient and/or family updated on plan of care and expected duration. Pain level reassessed. Patient is alert, oriented x 3, equal unlabored respirations, skin warm/dry/pink. 22:08 Reassessment: Patient appears in no apparent distress at this time. No changes from al5 previously documented assessment. Patient and/or family updated on plan of care and expected duration. Pain level reassessed. Patient is alert, oriented x 3, equal unlabored respirations, skin warm/dry/pink. 23:31 Reassessment: Patient appears in no apparent distress at this time. No changes from al5 previously documented assessment. Patient and/or family updated on plan of care and expected duration. Pain level reassessed. Patient is alert, oriented x 3, equal unlabored respirations, skin warm/dry/pink. 02/11 00:24 Reassessment: Patient appears in no apparent distress at this time. No changes from al5 previously documented assessment. Patient and/or family updated on plan of care and expected duration. Pain level reassessed. Patient is alert, oriented x 3, equal unlabored respirations, skin warm/dry/pink. gave report to DARREN German at [facility]. 01:12 Reassessment: Patient appears in no apparent distress at this time. No changes from al5 previously documented assessment. Patient and/or family updated on plan of care and expected duration. Pain level reassessed. Patient is alert, oriented x 3, equal unlabored respirations, skin warm/dry/pink. Vital Signs: 02/10 18:07 BP 143 / 72; Pulse 94; Resp 18; Temp 97.4(TE); Pulse Ox 94% on R/A; Weight 61.23 kg; cm10 Height 5 ft. 6 in. ; Pain 3/10; 19:30 BP 151 / 58; Pulse 77; Resp 14; Pulse Ox 94% on R/A; al5 20:00 BP 156 / 47; Pulse 78; Resp 12; Pulse Ox 95% on R/A; al5 20:30 BP 139 / 50; Pulse 78; Resp 12; Pulse Ox 96% on R/A; al5 21:00 BP 121 / 50; Pulse 80; Resp 13; Pulse Ox 94% on R/A; al5 21:30 BP 118 / 50; Pulse 78; Resp 14; Pulse Ox 93% on R/A; al5 22:06 BP 127 / 51; Pulse 74; Resp 13; Pulse Ox 95% on R/A; al5 22:30 BP 144 / 58; Pulse 77; Resp 12; Pulse Ox 94% on R/A; al5 23:00 BP 151 / 60; Pulse 76; Resp 14; Pulse Ox 97% on R/A; al5 23:30 BP 119 / 69; Pulse 70; Resp 14; Pulse Ox 98% on R/A; al5 02/11 00:00 BP 139 / 58; Pulse 72; Resp 15; Pulse Ox 95% on R/A; al5 00:30 BP 110 / 58; Pulse 73; Resp 14; Pulse Ox 97% on R/A; al5 01:00 BP 147 / 68; Pulse 73; Resp 13; Pulse Ox 95% on R/A; al5 02/10 18:07 Body Mass Index 21.79 (61.23 kg, 167.64 cm) cm10 02/10 18:07 Pain Scale: Adult cm10 ED Course: 02/10 17:55 Patient arrived in ED. im 17:58 [facility]C [facility]. kb 17:58 Roberto Yu MD is Attending Physician. kb 18:08 Triage completed. cm10 18:08 Arm band placed on right wrist. Patient placed in waiting room. cm10 18:12 COVID-19 Ag + Flu A+B Ag Sent. cm10 18:12 COVID swab sent to lab. cm10 18:30 Radiology exam delayed due to lab results not completed at this time. (BUN/Creatinine) nj IV insertion attempt and/or patient not having appropriate IV at this time. 19:21 Urine collected: clean catch specimen, sent to lab. ts3 19:39 Gloria Panchal, RN is Primary Nurse. al5 19:39 Patient has correct armband on for positive identification. Bed in low position. Call al5 light in reach. Side rails up X 1. Provided Education on: plan of care. 19:40 No provider procedures requiring assistance completed. Missed attempt(s): 22 gauge in al5 right antecubital area. 19:40 Missed attempt(s): 22 gauge in right forearm. al5 23:50 Initiated transfer with Tammie at [facility] \T\[id number], Doc to Doc with ER physician \T\[id number], Pt rv [address] Mendoza to [facility]. 02/11 00:28 [facility] to transfer. rv1 00:56 Abdomen In Process Unspecified. EDMS 00:57 Chest Single View In Process Unspecified. EDMS 01:12 Patient transferred, IV remains in place. al5 Administered Medications: 02/10 20:50 Drug: Ondansetron IVP 4 mg IVP once; over 2 minutes Route: IVP; Site: right antecubital;al5 22:55 Follow up: Response: No adverse reaction; Nausea is decreased al5 20:50 Drug: NS 0.9% IV 500 ml 500 ml IV at 1 bolus once; to be given as a bolus over 30 al5 minutes Volume: 500 ml; Route: IV; Rate: 1 bolus; Site: right antecubital; 22:55 Follow up: Response: No adverse reaction; IV Status: Completed infusion; IV Intake: al5 500ml 02/11 00:23 Drug: metroNIDAZOLE IVPB 500 mg 100 ml IVPB at 200 ml/hr once over 30 mins Volume: 100 al5 ml; Route: IVPB; Rate: 200 ml/hr; Infused Over: 30 mins; Site: right antecubital; 00:56 Follow up: Response: No adverse reaction; IV Status: Completed infusion; IV Intake: al5 100ml 00:58 Drug: Ciprofloxacin IVPB 400 mg 200 ml IVPB once over 60 mins Volume: 200 ml; Route: al5 IVPB; Infused Over: 60 mins; Site: right antecubital; 01:12 Follow up: Response: No adverse reaction; IV Status: Infusion continued upon transfer al5 Medication: 02/10 19:40 VIS not applicable for this client. al5 Intake: 22:55 IV: 500ml; Total: 500ml. al5 02/11 00:56 IV: 100ml; Total: 600ml. al5 Outcome: 02/10 23:55 ER care complete, transfer ordered by MD. william 02/11 01:12 Transferred by ground EMS EMS. to [facility], al5 Condition: stable Instructed on the need for transfer, 01:41 Patient left the ED. al5 Signatures: Dispatcher [employer] EDMS Anne Reinoso, SALES AND SERVICE CONSULTANT-C SALES AND SERVICE CONSULTANT-Ckb Huseyin Daley Rebecca rv1 Hailey Johnson Clarissa, RN RN cm10 Gloria Panchal RN RN al5 Lissa Peralta ts3 Corrections: (The following items were deleted from the chart) 02/10 22:09 19:40 Pain: Denies pain. al5 al5 22:09 19:40 Respiratory: Reports shortness of breath cough that is Airway is patent al5 Respiratory effort is even, unlabored, Respiratory pattern is regular, symmetrical, al5 22:09 19:40 GI: No signs and/or symptoms were reported involving the gastrointestinal system. al5 Colostomy site is clean and dry. Ostomy appliance is intact. al5 02/11 00:28 00:24 Reassessment: Patient appears in no apparent distress at this time. No changes al5 from previously documented assessment. Patient and/or family updated on plan of care and expected duration. Pain level reassessed. Patient is alert, oriented x 3, equal unlabored respirations, skin warm/dry/pink. al5
[2025-02-11 01:02] LABS: PT Prothrombin Time 19.4 SECONDS (10-13.0); PTT, Activated Partial Thromb 37.6 SECONDS (27.2-37.4); Protime INR 1.74
[2025-02-11 06:45] VITALS: TEMP 97.4
[2025-02-11 07:06] VITALS: BP 147/68; O2SAT 95
== END 2025-02-11 01:41 | disposition short-term general hospital (02) ==
LOC: ER 17:53
DX: R10.9 Unspecified abdominal pain (principal); K60.40 Rectal fistula, unspecified; R11.10 Vomiting, unspecified; I10 Essential (primary) hypertension; Z93.3 Colostomy status; Z88.0 Allergy status to penicillin; Z11.52 Encounter for screening for COVID-19
CPT/HCPCS: 96365; 96361; 87040 ×2; 87070; 87088; 85025; 81001; 87086; 36415 ×2; 85610; 83605; 85730; 83690; 80053; 74176; 71045; 96375; 99285; 87428; J2405; J0744; J7040; 87077; 87186